=== PATIENT | male | born 1955 | race Caucasian/White ===

== ENCOUNTER 2017-07-24 08:24 | Day surgery (SDC) | payer MEDICARE, BC ==
[2017-07-22 15:36] LABS: CLARITY,URINE CLEAR (Clear); COLOR,URINE YELLOW (Yellow); GLUCOSE, URINE NEGATIVE (Neg); KETONES,URINE NEGATIVE (Neg); LEUKOCYTE ESTERASE ,URINE NEGATIVE (Neg); NITRITES, URINE NEGATIVE (Neg); OCCULT BLOOD,URINE NEGATIVE (Neg); PH,URINE 5.5 (4.8-8.0); PROTEIN,URINE NEGATIVE (Neg); UROBILINOGEN,URINE 0.2 E.U/dL (0.2-1.0)
[2017-07-22 15:41] LABS: BASOPHILS % (AUTO) 0.7 % (0-1); EOSINOPHILS # (AUTO) 0.4 X10'3 (0-0.9); EOSINOPHILS % (AUTO) 6.2 % (0-6); LYMPHOCYTES # (AUTO) 1.7 X10'3 (1.1-4.8); LYMPHOCYTES % (AUTO) 30.1 % (21-51); MEAN CORPUSCULAR HEMOGLOBIN 34.7 PG (27.0-31.0); MEAN CORPUSCULAR HGB CONC 34.3 % (33.0-36.5); MEAN CORPUSCULAR VOLUME 101.1 FL (78-98); MONOCYTES # (AUTO) 0.7 X10'3 (0-0.9); MONOCYTES % (AUTO) 12.1 % (2-12); NEUTROPHILS # (AUTO) 2.9 X10'3 (1.8-7.7); NEUTROPHILS % (AUTO) 50.9 % (42-75); PRE OP HEMATOCRIT 36.5 % (42.0-52.0); PRE OP HEMOGLOBIN 12.5 g/dL (14.0-17.9); PRE OP PLATELET COUNT 315 X10'3 (140-440); RED BLOOD COUNT 3.61 X10'6 (4.70-6.10); RED CELL DISTRIBUTION WIDTH 14.9 % (11.5-14.5)
[2017-07-22 15:41] LABS: UA COLLECTION TYPE CLN CATCH MIDSTREAM
[2017-07-22 15:45] LABS: ALBUMIN 3.4 G/DL (3.4-5.0); ALBUMIN/GLOBULIN RATIO 0.9 (1.1-1.5); ALKALINE PHOSPHATASE 75 IU/L (46-116); BLOOD UREA NITROGEN 15 MG/DL (7-18); BUN/CREATININE RATIO 14.9 (5.4-32.0); CALCIUM 8.8 MG/DL (8.5-10.1); CHLORIDE 103 MMOL/L (99-107); CREATININE 1.01 MG/DL (0.60-1.10); PRE OP ALT 21 U/L (30-65); PRE OP ANION GAP 6 (8-16); PRE OP AST 20 U/L (10-37); PRE OP BILIRUB, TOTAL 0.4 MG/DL (0.0-1.0); PRE OP GLUCOSE 95 MG/DL (70-104); PRE OP POTASSIUM 4.6 MMOL/L (3.4-5.1); PRE OP SODIUM 139 MMOL/L (135-145); TOTAL PROTEIN 7.2 G/DL (6.4-8.2); eGFR 75 ML/MIN
[2017-07-24] VITALS (11 sets, daily range): BP systolic 115–137; BP diastolic 65–86
[~2017-07-24] VITALS: Ht 182.9 cm; Wt 92.4 kg
[~2017-07-24 08:24] MED LIST: ASPI81TA52 PO; CHOL2000 PO; DULO20CA50 PO; FOLI1TAB16 PO; LEVO150T PO; METH2.5T PO; MULT-1179 PO; PANT-47 PO; TEST5GEL2 TOP; ceFOXitin 2 GM ADDvantage bag 100 ML IV ONE; famotidine 20mg tablet PO ONE; ringers solution, lacted 1,000 ML IV SCH
[2017-07-24] MEDS ORDERED: MIDAZolam 5mg/ml 2ml vial IV PRN (10:50)
[2017-07-24] MEDS ORDERED: ROPIVAcaine 0.5% (5mg/ml) 30ml vial ONE (11:28)
[2017-07-24] MEDS ORDERED: ringers solution, lacted 1,000 ML IV SCH (12:06)
[2017-07-24] MEDS ORDERED: fentaNYL/PF 50MCG/1 ML 2ML syringe IV PRN (12:10)
[2017-07-24] MEDS ORDERED: hydrALAZINE 20mg/ml inj. IV PRN (12:10)
[2017-07-24] MEDS ORDERED: labetalol 20mg/4ml (5mg/ml) syringe IV PRN (12:10)
[2017-07-24] MEDS ORDERED: morphine 4 MG/ML inj SYRINge IV PRN ×2 (12:10)
[2017-07-24] MEDS ORDERED: ondansetron/PF 4mg/2ml inj IV PRN (12:10)
[2017-07-24] MEDS ORDERED: ceFAZolin 1000mg inj ONE (12:13)
[2017-07-24] MEDS ORDERED: sevoflurane 250ml liquid IH ONE (13:10)
[2017-07-24] MEDS ORDERED: rocuronium 10mg/ml inj IV ONE (13:19)
[2017-07-24] MEDS ORDERED: glycopyrrolate 0.2mg/ml inj ONE (13:19)
[2017-07-24] MEDS ORDERED: neostigmine methylsulfate 1 MG/ML 10ml vial ONE (13:19)
[2017-07-24] MEDS ORDERED: LIDOcaine 2% (20mg/ml) 5ml vial ONE (13:19)
[2017-07-24] MEDS ORDERED: propofol inj 20 ML IV ONE (13:19)
[2017-07-24] MEDS ORDERED: morphine 10mg/ml inj. ONE ×2 (13:21)
[2017-07-24] MEDS ORDERED: midazolam 2 mg/2 ml injection ONE ×2 (13:25)
[2017-07-24] MEDS: fentaNYL/PF 50MCG/1 ML 2ML syringe IV PRN ×2 (15:47→15:56)
== END 2017-07-24 16:30 | disposition home or self-care (01) ==
LOC: PAS 08:24
PROVIDERS: ATTEND Surgery
DX: K80.10 Calculus of gallbladder with chronic cholecystitis without obstruction (principal); E03.9 Hypothyroidism, unspecified; K21.9 Gastro-esophageal reflux disease without esophagitis; G89.29 Other chronic pain; I10 Essential (primary) hypertension; J44.9 Chronic obstructive pulmonary disease, unspecified; G47.33 Obstructive sleep apnea (adult) (pediatric); Z96.698 Presence of other orthopedic joint implants; Z94.7 Corneal transplant status; Z79.891 Long term (current) use of opiate analgesic; Z79.82 Long term (current) use of aspirin; Z87.891 Personal history of nicotine dependence; Z72.89 Other problems related to lifestyle; Z98.890 Other specified postprocedural states; Z79.899 Other long term (current) drug therapy
CPT/HCPCS: 36415; 47562; 80053; 81003; 85025; 93005; J0690; J0694; J2001; J2250; J2270; J2704; J2710; J2795; J3010; J3490; J7120; 88304; A7000

== ENCOUNTER 2017-07-29 13:59 | Observation (INO) | payer MEDICARE, BC ==
[~2017-07-29] VITALS: Ht 185.4 cm; Wt 92.3 kg
[~2017-07-29 13:59] MED LIST changes: -ceFOXitin 2 GM ADDvantage bag 100 ML IV ONE; -famotidine 20mg tablet PO ONE; -ringers solution, lacted 1,000 ML IV SCH
[2017-07-29 14:47] LABS: BASOPHILS % (AUTO) 0.6 % (0-1); EOSINOPHILS # (AUTO) 0.9 X10'3 (0-0.9); EOSINOPHILS % (AUTO) 12.2 % (0-6); HEMATOCRIT 37.6 % (42.0-52.0); HEMOGLOBIN 13.1 g/dl (14.0-17.9); LYMPHOCYTES # (AUTO) 1.7 X10'3 (1.1-4.8); LYMPHOCYTES % (AUTO) 23.1 % (21-51); MEAN CORPUSCULAR HEMOGLOBIN 34.5 PG (27.0-31.0); MEAN CORPUSCULAR HGB CONC 34.8 % (33.0-36.5); MEAN PLATELET VOLUME 7.7 FL (7.4-10.4); MONOCYTES # (AUTO) 0.8 X10'3 (0-0.9); MONOCYTES % (AUTO) 10.7 % (2-12); NEUTROPHILS # (AUTO) 3.9 X10'3 (1.8-7.7); NEUTROPHILS % (AUTO) 53.4 % (42-75); PLATELET COUNT 318 X10'3 (140-440); RED CELL DISTRIBUTION WIDTH 13.7 % (11.5-14.5); WHITE BLOOD COUNT 7.3 X10'3 (4.5-11.0)
[2017-07-29 14:57] LABS: PARTIAL THROMBOPLASTIN TIME 29 SECONDS (22-32); PROTHROMBIN TIME 10.2 SECONDS (9.0-12.0)
[2017-07-29 15:09] LABS: ALANINE AMINOTRANSFERASE 78 U/L (12-78); ALBUMIN 3.3 G/DL (3.4-5.0); ALBUMIN/GLOBULIN RATIO 0.8 (1.1-1.5); ALKALINE PHOSPHATASE 200 IU/L (46-116); ANION GAP 10 (8-16); ASPARTATE AMINO TRANSFERASE 59 U/L (10-37); BILIRUBIN,TOTAL 0.6 MG/DL (0.1-1.0); BLOOD UREA NITROGEN 13 MG/DL (7-18); BUN/CREATININE RATIO 15.3 (5.4-32.0); CALCIUM 9.4 MG/DL (8.5-10.1); CHLORIDE 100 MMOL/L (99-107); CREATININE 0.85 MG/DL (0.60-1.10); GLUCOSE 96 MG/DL (70-104); POTASSIUM 3.4 MMOL/L (3.5-5.1); SODIUM 136 MMOL/L (135-145); TOTAL CARBON DIOXIDE 25.9 MMOL/L (24-32); TOTAL PROTEIN 7.6 G/DL (6.4-8.2); eGFR > 90 ML/MIN
[2017-07-29] MEDS ORDERED: ondansetron/PF 4mg/2ml inj IV ONE (15:35)
[2017-07-29] MEDS ORDERED: normal saline 1000ML IV soln IV ONE (15:35)
[2017-07-29] MEDS: morphine 4 MG/ML inj SYRINge IV PRN ×4 (15:55→21:03)
[2017-07-29] MEDS ORDERED: CefTRIAXone 2gm/D5W 50ml 50 ML IV ONE (16:10)
[2017-07-29 16:21] LABS: CLARITY,URINE SLIGHTLY CLOUDY (Clear); COLOR,URINE YELLOW (Yellow); GLUCOSE, URINE NEGATIVE (Neg); KETONES,URINE 15 mg/dl (Neg); LEUKOCYTE ESTERASE ,URINE NEGATIVE (Neg); NITRITES, URINE NEGATIVE (Neg); OCCULT BLOOD,URINE NEGATIVE (Neg); PH,URINE 7.5 (4.8-8.0); PROTEIN,URINE NEGATIVE (Neg)
[2017-07-29 16:23] LABS: UA COLLECTION TYPE CLN CATCH MIDSTREAM
[2017-07-29 16:37] LABS: BACTERIA,URINE NONE SEEN /HPF (Neg); RBC,URINE 0-2 /HPF (0-2); SQUAMOUS EPITHELIAL CELL,UR FEW /LPF (FEW); WBC,URINE 0-4 /HPF (0-4)
[2017-07-29] MEDS ORDERED: potassium Cl 40MEQ/NS 500ml 500 ML IV PRN ×2 (17:35)
[2017-07-29] MEDS ORDERED: ondansetron/PF 4mg/2ml inj IV PRN (17:35)
[2017-07-29] MEDS ORDERED: magnesium Cl slow-release 64mg tablet PO PRN (17:35)
[2017-07-29] MEDS ORDERED: mag hydrox/Alum hydrox/simeth 30ml oral suspension PO PRN (17:35)
[2017-07-29] MEDS ORDERED: magnesium/D5W IVPB 50 ML IV PRN (17:35)
[2017-07-29] MEDS ORDERED: potassium Cl 20 mEq SR tablet PO PRN ×2 (17:35)
[2017-07-29] MEDS ORDERED: magnesium 4gm in 100ml NS 100 ML IV PRN (17:35)
[2017-07-29] MEDS ORDERED: HYDROcodone/acetaminophen 10/325mg tab PO PRN (17:35)
[2017-07-29] MEDS ORDERED: HYDROcodone/acetaminophen 5mg/325mg tablet PO PRN (17:35)
[2017-07-29] MEDS ORDERED: acetaminophen 325mg tablet PO PRN ×2 (17:35)
[2017-07-29] MEDS ORDERED: metoclopramide 5 mg/ml inj IV PRN (17:35)
[2017-07-29] MEDS ORDERED: magnesium hydroxide 30ml (MOM) UD suspension PO PRN (17:35)
[2017-07-29] MEDS ORDERED: HYDR-3972 PO (17:49)
[2017-07-29] MEDS ORDERED: METH2.5T PO (17:49)
[2017-07-29] MEDS: normal saline 1000ml 1,000 ML IV SCH (18:51)
[2017-07-29] MEDS: piperacillin/tazo 3.375gm/50ml 50 ML IV SCH ×2 (19:27→23:39)
[2017-07-29] MEDS ORDERED: temazepam 15mg capsule PO PRN (21:00)
[2017-07-29] MEDS: diatr meglu/diatrizoate 30ml oral sol.-(3 dose) bottle PO SCH (21:03)
[2017-07-29 22:56] VITALS: BP 153/81
[2017-07-30] VITALS: BP 109/65
[2017-07-30] MEDS: normal saline 1000ml 1,000 ML IV SCH ×3 (03:28→19:05)
[2017-07-30 04:58] LABS: BASOPHILS # (AUTO) 0.1 X10'3 (0-0.2); EOSINOPHILS # (AUTO) 0.7 X10'3 (0-0.9); EOSINOPHILS % (AUTO) 12.8 % (0-6); HEMATOCRIT 32.8 % (42.0-52.0); HEMOGLOBIN 11.2 g/dl (14.0-17.9); LYMPHOCYTES # (AUTO) 1.3 X10'3 (1.1-4.8); LYMPHOCYTES % (AUTO) 23.7 % (21-51); MEAN CORPUSCULAR HEMOGLOBIN 34.2 PG (27.0-31.0); MEAN CORPUSCULAR HGB CONC 34.1 % (33.0-36.5); MEAN CORPUSCULAR VOLUME 100.2 FL (78-98); MEAN PLATELET VOLUME 7.9 FL (7.4-10.4); MONOCYTES # (AUTO) 0.7 X10'3 (0-0.9); MONOCYTES % (AUTO) 12.5 % (2-12); NEUTROPHILS # (AUTO) 2.7 X10'3 (1.8-7.7); PLATELET COUNT 268 X10'3 (140-440); RED BLOOD COUNT 3.27 X10'6 (4.70-6.10); RED CELL DISTRIBUTION WIDTH 13.5 % (11.5-14.5); WHITE BLOOD COUNT 5.4 X10'3 (4.5-11.0)
[2017-07-30 05:16] LABS: ALANINE AMINOTRANSFERASE 115 U/L (12-78); ALBUMIN 2.6 G/DL (3.4-5.0); ALBUMIN/GLOBULIN RATIO 0.7 (1.1-1.5); ALKALINE PHOSPHATASE 237 IU/L (46-116); ANION GAP 7 (8-16); ASPARTATE AMINO TRANSFERASE 138 U/L (10-37); BILIRUBIN,TOTAL 0.5 MG/DL (0.1-1.0); BLOOD UREA NITROGEN 10 MG/DL (7-18); BUN/CREATININE RATIO 11.1 (5.4-32.0); CALCIUM 8.4 MG/DL (8.5-10.1); CHLORIDE 105 MMOL/L (99-107); GLUCOSE 96 MG/DL (70-104); MAGNESIUM 1.8 MG/DL (1.5-2.4); POTASSIUM 3.8 MMOL/L (3.5-5.1); SODIUM 137 MMOL/L (135-145); TOTAL CARBON DIOXIDE 25.1 MMOL/L (24-32); TOTAL PROTEIN 6.1 G/DL (6.4-8.2); eGFR 85 ML/MIN
[2017-07-30] MEDS: K and/or MAG REPLACEMENT MC SCH (08:00)
[2017-07-30] MEDS: diatr meglu/diatrizoate 30ml oral sol.-(3 dose) bottle PO SCH ×2 (08:38→10:42)
[2017-07-30] MEDS: piperacillin/tazo 3.375gm/50ml 50 ML IV SCH ×2 (08:53→19:05)
[2017-07-30] MEDS: morphine 4 MG/ML inj SYRINge IV PRN (09:09)
[2017-07-30] MEDS ORDERED: DULO30CA51 PO (09:24)
[2017-07-30] MEDS ORDERED: iohexol 350MG/ML 100ml bottle IV ONE (10:51)
[2017-07-30 17:31] LABS: CHOL/HDL RATIO 5.2 (0.00-4.99); CHOLESTEROL 146 MG/DL (0-200); HDL CHOLESTEROL 28 MG/DL (35-60); LDL CHOLESTEROL 99 MG/DL (50-100); TRIGLYCERIDES 98 MG/DL (20-135)
[2017-07-30 19:30] VITALS: BP 96/56
[2017-07-31 00:03] VITALS: BP 113/64
[2017-07-31] MEDS: piperacillin/tazo 3.375gm/50ml 50 ML IV SCH ×2 (01:18→08:07)
[2017-07-31 04:11] LABS: BASOPHILS # (AUTO) 0.1 X10'3 (0-0.2); BASOPHILS % (AUTO) 1.1 % (0-1); EOSINOPHILS # (AUTO) 0.7 X10'3 (0-0.9); EOSINOPHILS % (AUTO) 12.7 % (0-6); HEMATOCRIT 33.1 % (42.0-52.0); HEMOGLOBIN 11.1 g/dl (14.0-17.9); LYMPHOCYTES # (AUTO) 1.3 X10'3 (1.1-4.8); LYMPHOCYTES % (AUTO) 22.5 % (21-51); MEAN CORPUSCULAR HGB CONC 33.6 % (33.0-36.5); MEAN CORPUSCULAR VOLUME 101.1 FL (78-98); MEAN PLATELET VOLUME 7.9 FL (7.4-10.4); MONOCYTES # (AUTO) 0.7 X10'3 (0-0.9); MONOCYTES % (AUTO) 11.5 % (2-12); NEUTROPHILS % (AUTO) 52.2 % (42-75); PLATELET COUNT 293 X10'3 (140-440); RED BLOOD COUNT 3.27 X10'6 (4.70-6.10); RED CELL DISTRIBUTION WIDTH 13.6 % (11.5-14.5); WHITE BLOOD COUNT 5.8 X10'3 (4.5-11.0)
[2017-07-31 04:28] LABS: ALANINE AMINOTRANSFERASE 83 U/L (12-78); ALBUMIN 2.8 G/DL (3.4-5.0); ALBUMIN/GLOBULIN RATIO 0.8 (1.1-1.5); ALKALINE PHOSPHATASE 216 IU/L (46-116); ANION GAP 9 (8-16); ASPARTATE AMINO TRANSFERASE 45 U/L (10-37); BILIRUBIN,TOTAL 0.3 MG/DL (0.1-1.0); BLOOD UREA NITROGEN 6 MG/DL (7-18); BUN/CREATININE RATIO 6.4 (5.4-32.0); CALCIUM 8.5 MG/DL (8.5-10.1); CHLORIDE 107 MMOL/L (99-107); CREATININE 0.94 MG/DL (0.60-1.10); GLUCOSE 105 MG/DL (70-104); MAGNESIUM 1.9 MG/DL (1.5-2.4); POTASSIUM 3.8 MMOL/L (3.5-5.1); SODIUM 144 MMOL/L (135-145); TOTAL CARBON DIOXIDE 27.8 MMOL/L (24-32); TOTAL PROTEIN 6.5 G/DL (6.4-8.2); eGFR 81 ML/MIN
[2017-07-31] MEDS: normal saline 1000ml 1,000 ML IV SCH (05:01)
[2017-07-31] MEDS: K and/or MAG REPLACEMENT MC SCH (08:00)
== END 2017-07-31 15:20 | disposition home or self-care (01) ==
LOC: ER 14:00 → ED HOLD 17:31 → SUR 3N 18:50
PROVIDERS: ADMIT Family Medicine; ATTEND Family Medicine
DX: R10.10 Upper abdominal pain, unspecified (principal); G89.18 Other acute postprocedural pain; E03.9 Hypothyroidism, unspecified; M54.5 Low back pain; G89.29 Other chronic pain; M19.90 Unspecified osteoarthritis, unspecified site; E11.9 Type 2 diabetes mellitus without complications; K21.9 Gastro-esophageal reflux disease without esophagitis; H54.62 Unqualified visual loss, left eye, normal vision right eye; J44.9 Chronic obstructive pulmonary disease, unspecified; A41.9 Sepsis, unspecified organism; Z87.891 Personal history of nicotine dependence; Z90.49 Acquired absence of other specified parts of digestive tract
CPT/HCPCS: 36415; 71045; 74174; 74176; 80053; 80061; 81001; 83605; 83735; 84145; 84484; 85025; 85610; 85730; 87040; 87070; 93005; 96361; 96365; 96366; 96367; 96375; 96376; 99285; G0378; J0696; J2270; J2405; J2543; J7030; Q9963; Q9967

== ENCOUNTER 2017-08-19 09:51 | Outpatient (CLI) | payer MEDICARE, BC ==
[~2017-08-19 09:51] MED LIST changes: -DULO20CA50 PO; +DULO30CA51 PO; +HYDR-3972 PO
== END 2017-08-19 23:59 | disposition home or self-care (01) ==
LOC: RAD 09:51
PROVIDERS: ATTEND Surgery
DX: Z00.00 Encounter for general adult medical examination without abnormal findings (principal); Z53.21 Procedure and treatment not carried out due to patient leaving prior to being seen by health care provider

== ENCOUNTER 2017-08-20 09:22 | Outpatient (CLI) | payer MEDICARE, BC ==
[2017-08-20] MEDS ORDERED: diatrozoate meglu/diatrozoate sod (37% iodine) 120ML oral solution ONE (10:08)
[2017-08-20] MEDS ORDERED: BARIUM SULFATE/METHYLCELLULOSE 600 ML SUSPENSION BOTTLE**DONT ENTER PO ONE (10:26)
[2017-08-20] MEDS ORDERED: BARIUM SULFATE 340 ML SUSP.RECON***PROCEDURE AREA ONLY**DONT ENTER PO ONE (10:26)
== END 2017-08-20 23:59 | disposition home or self-care (01) ==
LOC: RAD 09:22
PROVIDERS: ATTEND Surgery
DX: R10.13 Epigastric pain (principal)
CPT/HCPCS: 74241; Q9963

== ENCOUNTER 2017-12-25 09:20 | Inpatient (IN) | payer MEDICARE, BC ==
[2017-12-19 16:17] LABS: BASOPHILS % (AUTO) 0.7 % (0-1); EOSINOPHILS # (AUTO) 0.4 X10'3 (0-0.9); EOSINOPHILS % (AUTO) 6.4 % (0-6); LYMPHOCYTES # (AUTO) 1.7 X10'3 (1.1-4.8); LYMPHOCYTES % (AUTO) 26.6 % (21-51); MEAN CORPUSCULAR HEMOGLOBIN 32.4 PG (27.0-31.0); MEAN CORPUSCULAR HGB CONC 33.4 % (33.0-36.5); MEAN PLATELET VOLUME 7.5 FL (7.4-10.4); MONOCYTES # (AUTO) 0.7 X10'3 (0-0.9); MONOCYTES % (AUTO) 10.3 % (2-12); NEUTROPHILS # (AUTO) 3.6 X10'3 (1.8-7.7); PRE OP HEMATOCRIT 36.4 % (42.0-52.0); PRE OP HEMOGLOBIN 12.2 g/dL (14.0-17.9); PRE OP PLATELET COUNT 366 X10'3 (140-440); RED BLOOD COUNT 3.76 X10'6 (4.70-6.10); RED CELL DISTRIBUTION WIDTH 14.1 % (11.5-14.5)
[2017-12-19 16:45] LABS: ALBUMIN 3.3 G/DL (3.4-5.0); ALBUMIN/GLOBULIN RATIO 0.9 (1.1-1.5); ALKALINE PHOSPHATASE 65 IU/L (46-116); BLOOD UREA NITROGEN 15 MG/DL (7-18); BUN/CREATININE RATIO 17.6 (5.4-32.0); CALCIUM 8.9 MG/DL (8.5-10.1); CHLORIDE 105 MMOL/L (99-107); CREATININE 0.85 MG/DL (0.60-1.10); PRE OP ALT 26 U/L (30-65); PRE OP ANION GAP 8 (8-16); PRE OP AST 21 U/L (10-37); PRE OP BILIRUB, TOTAL 0.4 MG/DL (0.0-1.0); PRE OP GLUCOSE 91 MG/DL (70-104); PRE OP POTASSIUM 3.6 MMOL/L (3.4-5.1); PRE OP SODIUM 142 MMOL/L (135-145); TOTAL CARBON DIOXIDE 29.1 MMOL/L (24-32); TOTAL PROTEIN 6.8 G/DL (6.4-8.2); eGFR > 90 ML/MIN
[2017-12-25] VITALS (21 sets, daily range): BP systolic 85–119; BP diastolic 42–76
[~2017-12-25] VITALS: Ht 182.9 cm; Wt 90.7 kg
[~2017-12-25 09:20] MED LIST changes: -ASPI81TA52 PO; -CHOL2000 PO; -DULO30CA51 PO; -HYDR-3972 PO; -MULT-1179 PO; +acetaminophen 325mg tablet PO ONE; +cefazolin/dext.iso 2gm/100 ML IV ONE; +famotidine 20mg tablet PO ONE; +gabapentin 300mg capsule PO ONE; +metoclopramide 5 mg/ml inj IV ONE; +oxyCODONE SR 10mg (sust. release) tab -2 tabs (20mg) PO ONE; +ringers solution, lacted 1,000 ML IV SCH; +tranexamic acid inj. 1,000 MG in normal saline 100ml IV soln 90 ML IV ONE; +vancomycin inj 1,500 MG in normal saline 300ml IV soln IV ONE
[2017-12-25] MEDS ORDERED: Thrombin (Bovine) 5,000 unit vial TP ONE (09:56)
[2017-12-25] MEDS ORDERED: vancomycin 1,000mg inj ONE ×2 (09:56→10:08)
[2017-12-25] MEDS ORDERED: ROPIVAcaine inj 200 MG, ketorolac trometh inj. 30 MG, epiNEPHrine inj 0.6 MG, morphine ... IU ONE ×5 (10:05)
[2017-12-25] MEDS ORDERED: ceFAZolin 1000mg inj ONE (10:08)
[2017-12-25] MEDS ORDERED: [UNRECOGNIZED DRUG - OTHER] SQ ONE (10:20)
[2017-12-25] MEDS ORDERED: ROPIVACAINE SQ ONE (10:20)
[2017-12-25] MEDS ORDERED: EPINEPHRINE SQ ONE (10:20)
[2017-12-25] MEDS ORDERED: MORPHINE SQ ONE (10:20)
[2017-12-25] MEDS ORDERED: ketorolac trometh. 30mg/ml inj. ONE (10:22)
[2017-12-25] MEDS ORDERED: ROPIVAcaine inj 200 MG, epiNEPHrine inj 0.6 MG, morphine 10mg/ml inj. 5 MG in normal sa... SQ ONE (10:35)
[2017-12-25] MEDS ORDERED: tetracaine 1% (10mg/ml) pres. free inj. ONE (10:58)
[2017-12-25] MEDS ORDERED: ROPIVAcaine 0.5% (5mg/ml) 30ml vial ONE (10:58)
[2017-12-25] MEDS ORDERED: fentaNYL/PF 50MCG/1 ML 2ML syringe ONE ×2 (10:59→13:31)
[2017-12-25] MEDS ORDERED: MIDAZolam 1mg/ml 10ml vial ONE (10:59)
[2017-12-25] MEDS ORDERED: BUPIVAcaine/dex-water/PF 7.5 mg/ml 2ml ampul ONE (11:01)
[2017-12-25] MEDS ORDERED: propofol inj 20 ML IV ONE ×2 (11:15)
[2017-12-25] MEDS ORDERED: phenylephrine 10mg/ml inj. ONE (11:18)
[2017-12-25] MEDS ORDERED: ringers solution, lacted 1,000 ML IV SCH (12:31)
[2017-12-25] MEDS ORDERED: proCHLORperazine 10 MG/2 ml inj IV PRN (12:35)
[2017-12-25] MEDS ORDERED: meperidine/PF 25mg/ml syringe IV PRN ×3 (12:35)
[2017-12-25] MEDS ORDERED: morphine 4 MG/ML inj SYRINge IV PRN ×2 (12:35)
[2017-12-25] MEDS ORDERED: ondansetron/PF 4mg/2ml inj IV PRN ×2 (12:35→13:35)
[2017-12-25] MEDS ORDERED: calcium chloride 100 MG/1 ML inj IV ONE (12:47)
[2017-12-25] MEDS ORDERED: bisacodyl 10mg suppository rectal RC PRN (13:35)
[2017-12-25] MEDS ORDERED: diphenhydrAMINE 25mg capsule PO PRN ×2 (13:35)
[2017-12-25] MEDS ORDERED: magnesium hydroxide 30ml (MOM) UD suspension PO PRN (13:35)
[2017-12-25] MEDS ORDERED: acetaminophen 325mg tablet PO PRN (13:35)
[2017-12-25] MEDS ORDERED: HYDROmorphone 1 mg/ml syringe IV PRN (13:35)
[2017-12-25] MEDS ORDERED: tranexamic acid inj. 1,000 MG in normal saline 100ml IV soln 100 ML IV ONE (16:35)
[2017-12-25] MEDS: oxyCODONE IR 5mg (immed. release) tablet PO PRN ×3 (16:56→23:34)
[2017-12-25] MEDS: potassium cl 20mEq in 1/2 NS 1,000 ML IV SCH (17:38)
[2017-12-25] MEDS: ceFAZolin 1GM/D5W- ADD-VANTAGE 50 ML IV SCH (18:40)
[2017-12-25] MEDS ORDERED: vancomycin/NS 1 GM ADD-VANTAGE 250 ML IV SCH (20:00)
[2017-12-25] MEDS ORDERED: folic acid 1mg tablet PO ONE ×2 (20:55→21:50)
[2017-12-25] MEDS: sennosides 8.6mg tablet PO SCH (21:31)
[2017-12-25] MEDS: acetaminophen 325mg tablet PO SCH (21:31)
[2017-12-25] MEDS: gabapentin 300mg capsule PO SCH (21:31)
[2017-12-25] MEDS: HYDROmorphone 1 mg/ml syringe IV PRN (21:43)
[2017-12-26] MEDS: ceFAZolin 1GM/D5W- ADD-VANTAGE 50 ML IV SCH (01:53)
[2017-12-26] MEDS: acetaminophen 325mg tablet PO SCH ×4 (01:58→20:20)
[2017-12-26 02:00] VITALS: BP 106/58
[2017-12-26] MEDS: potassium cl 20mEq in 1/2 NS 1,000 ML IV SCH ×4 (03:53→21:32)
[2017-12-26 05:00] VITALS: BP 106/54
[2017-12-26 05:01] LABS: BASOPHILS # (AUTO) 0.1 X10'3 (0-0.2); BASOPHILS % (AUTO) 1.4 % (0-1); EOSINOPHILS % (AUTO) 0 % (0-6); HEMATOCRIT 31.1 % (42.0-52.0); HEMOGLOBIN 10.4 g/dl (14.0-17.9); LYMPHOCYTES # (AUTO) 0.5 X10'3 (1.1-4.8); LYMPHOCYTES % (AUTO) 6.3 % (21-51); MEAN CORPUSCULAR HEMOGLOBIN 32.2 PG (27.0-31.0); MEAN CORPUSCULAR HGB CONC 33.5 % (33.0-36.5); MEAN CORPUSCULAR VOLUME 95.9 FL (78-98); MEAN PLATELET VOLUME 8.3 FL (7.4-10.4); MONOCYTES # (AUTO) 0.3 X10'3 (0-0.9); MONOCYTES % (AUTO) 3.6 % (2-12); NEUTROPHILS # (AUTO) 6.8 X10'3 (1.8-7.7); NEUTROPHILS % (AUTO) 88.7 % (42-75); PLATELET COUNT 305 X10'3 (140-440); RED BLOOD COUNT 3.24 X10'6 (4.70-6.10); RED CELL DISTRIBUTION WIDTH 13.2 % (11.5-14.5); WHITE BLOOD COUNT 7.6 X10'3 (4.5-11.0)
[2017-12-26 05:24] LABS: ANION GAP 10 (8-16); CHLORIDE 105 MMOL/L (99-107); POTASSIUM 4.5 MMOL/L (3.5-5.1); SODIUM 137 MMOL/L (135-145); TOTAL CARBON DIOXIDE 22.5 MMOL/L (24-32)
[2017-12-26] MEDS: HYDROmorphone 1 mg/ml syringe IV PRN ×3 (05:47→20:29)
[2017-12-26] MEDS: levoTHYROXINE 75mcg tablet PO SCH (07:52)
[2017-12-26] MEDS: gabapentin 300mg capsule PO SCH ×3 (08:00→20:20)
[2017-12-26] MEDS ORDERED: folic acid 1mg tablet PO ONE ×2 (08:00→20:00)
[2017-12-26] MEDS ORDERED: folic acid 1mg tablet PO SCH (08:00)
[2017-12-26] MEDS: aspirin 325mg tablet PO SCH (08:26)
[2017-12-26] MEDS: oxyCODONE IR 5mg (immed. release) tablet PO PRN ×5 (08:26→23:04)
[2017-12-26] MEDS: pantoprazole 40mg Tablet.DR PO SCH (08:26)
[2017-12-26] MEDS: testosterone 5gm gel packet TD SCH (08:28)
[2017-12-26 10:00] VITALS: BP 109/60
[2017-12-26 14:05] VITALS: BP 99/54
[2017-12-26 18:00] VITALS: BP 107/54
[2017-12-26] MEDS: celeCOXIB 100mg capsule PO SCH (20:19)
[2017-12-26] MEDS: sennosides 8.6mg tablet PO SCH (20:20)
[2017-12-26 22:00] VITALS: BP 107/56
[2017-12-27] MEDS: oxyCODONE IR 5mg (immed. release) tablet PO PRN ×4 (02:45→16:25)
[2017-12-27] MEDS: acetaminophen 325mg tablet PO SCH ×2 (02:45→08:02)
[2017-12-27] MEDS: HYDROmorphone 1 mg/ml syringe IV PRN (05:15)
[2017-12-27 05:30] VITALS: BP 122/71
[2017-12-27 07:20] LABS: BASOPHILS % (AUTO) 0.7 % (0-1); EOSINOPHILS # (AUTO) 0.3 X10'3 (0-0.9); EOSINOPHILS % (AUTO) 4.6 % (0-6); HEMATOCRIT 27.8 % (42.0-52.0); HEMOGLOBIN 9.3 g/dl (14.0-17.9); LYMPHOCYTES # (AUTO) 1.4 X10'3 (1.1-4.8); LYMPHOCYTES % (AUTO) 24.7 % (21-51); MEAN CORPUSCULAR HEMOGLOBIN 32.6 PG (27.0-31.0); MEAN CORPUSCULAR HGB CONC 33.4 % (33.0-36.5); MEAN CORPUSCULAR VOLUME 97.6 FL (78-98); MEAN PLATELET VOLUME 7.9 FL (7.4-10.4); MONOCYTES # (AUTO) 0.6 X10'3 (0-0.9); MONOCYTES % (AUTO) 10.2 % (2-12); NEUTROPHILS # (AUTO) 3.4 X10'3 (1.8-7.7); NEUTROPHILS % (AUTO) 59.8 % (42-75); PLATELET COUNT 288 X10'3 (140-440); RED BLOOD COUNT 2.85 X10'6 (4.70-6.10); RED CELL DISTRIBUTION WIDTH 13.6 % (11.5-14.5); WHITE BLOOD COUNT 5.7 X10'3 (4.5-11.0)
[2017-12-27] MEDS: pantoprazole 40mg Tablet.DR PO SCH (08:03)
[2017-12-27] MEDS: gabapentin 300mg capsule PO SCH ×2 (08:03→13:00)
[2017-12-27] MEDS: aspirin 325mg tablet PO SCH (08:03)
[2017-12-27] MEDS: levoTHYROXINE 75mcg tablet PO SCH (08:03)
[2017-12-27] MEDS: celeCOXIB 100mg capsule PO SCH (08:04)
[2017-12-27] MEDS: testosterone 5gm gel packet TD SCH (08:04)
[2017-12-27 10:04] VITALS: BP 125/72
[2017-12-27] MEDS ORDERED: acetaminophen 325mg tablet PO PRN (13:35)
[2017-12-27] MEDS ORDERED: HYDR-4353 PO (16:29)
== END 2017-12-27 17:34 | disposition home health service (06) | DRG 470 ==
LOC: PAS IN 09:20 → EDSTATUS 11:30 → ORTHO 4S 15:37
PROVIDERS: ADMIT Orthopaedic Surgery; ATTEND Orthopaedic Surgery
PROC: 8E0YXCZ Robotic Assisted Procedure of Lower Extremity (ICD-10-PCS; 2017-12-25)
PROC: 3E0T3BZ Introduction of Anesthetic Agent into Peripheral Nerves and Plexi, Percutaneous Approach (ICD-10-PCS; 2017-12-25)
PROC: 0SRC069 Replacement of Right Knee Joint with Oxidized Zirconium on Polyethylene Synthetic Substitute, Cemented, Open Approach (ICD-10-PCS; principal; 2017-12-25 10:56)
DX: M17.11 Unilateral primary osteoarthritis, right knee (principal); D62 Acute posthemorrhagic anemia; G47.30 Sleep apnea, unspecified; E03.9 Hypothyroidism, unspecified; I10 Essential (primary) hypertension; K21.9 Gastro-esophageal reflux disease without esophagitis; Z79.899 Other long term (current) drug therapy
CPT/HCPCS: 36415; 80051; 80053; 84443; 85025; 87070; 93005; 97110; 97116; 97161; A6455; A7000; C1713; C1758; C1776; G0378; J0171; J0690; J1170; J1885; J2175; J2250; J2270; J2274; J2370; J2704; J2765; J2795; J3010; J3370; J3490; J7030; J7120; J8610

== ENCOUNTER → 2018-01-01 | Outpatient (CLI) | payer MEDICARE, BC ==
[~2018-01-01] MED LIST changes: +HYDR-4353 PO; -acetaminophen 325mg tablet PO ONE; -cefazolin/dext.iso 2gm/100 ML IV ONE; -famotidine 20mg tablet PO ONE; -gabapentin 300mg capsule PO ONE; -metoclopramide 5 mg/ml inj IV ONE; -oxyCODONE SR 10mg (sust. release) tab -2 tabs (20mg) PO ONE; -ringers solution, lacted 1,000 ML IV SCH; -tranexamic acid inj. 1,000 MG in normal saline 100ml IV soln 90 ML IV ONE; -vancomycin inj 1,500 MG in normal saline 300ml IV soln IV ONE
== END | disposition home or self-care (01) ==
LOC: VAS 10:55
PROVIDERS: ATTEND Orthopaedic Surgery
DX: R59.0 Localized enlarged lymph nodes (principal); R60.0 Localized edema; M79.604 Pain in right leg; I10 Essential (primary) hypertension; J44.9 Chronic obstructive pulmonary disease, unspecified; E11.9 Type 2 diabetes mellitus without complications; Z87.891 Personal history of nicotine dependence; Z79.82 Long term (current) use of aspirin
CPT/HCPCS: 93971

== ENCOUNTER 2018-01-05 10:35 | Inpatient (IN) | payer MEDICARE, BC ==
[~2018-01-05] VITALS: Ht 182.9 cm; Wt 89.5 kg
[2018-01-05] MEDS ORDERED: methylPREDNISolone sod succ 125mg/2ml vial IV ONE (11:05)
[2018-01-05] MEDS ORDERED: diphenhydrAMINE 50 mg/ml inj IV ONE (11:05)
[2018-01-05 11:23] LABS: BASOPHILS # (AUTO) 0.1 X10'3 (0-0.2); BASOPHILS % (AUTO) 0.6 % (0-1); EOSINOPHILS # (AUTO) 0.7 X10'3 (0-0.9); EOSINOPHILS % (AUTO) 5.7 % (0-6); HEMATOCRIT 39.9 % (42.0-52.0); HEMOGLOBIN 13.4 g/dl (14.0-17.9); LYMPHOCYTES # (AUTO) 1.8 X10'3 (1.1-4.8); LYMPHOCYTES % (AUTO) 15.4 % (21-51); MEAN CORPUSCULAR HEMOGLOBIN 31.9 PG (27.0-31.0); MEAN CORPUSCULAR HGB CONC 33.7 % (33.0-36.5); MEAN CORPUSCULAR VOLUME 94.5 FL (78-98); MEAN PLATELET VOLUME 8.2 FL (7.4-10.4); MONOCYTES # (AUTO) 0.3 X10'3 (0-0.9); MONOCYTES % (AUTO) 2.4 % (2-12); NEUTROPHILS % (AUTO) 75.9 % (42-75); PLATELET COUNT 452 X10'3 (140-440); RED BLOOD COUNT 4.22 X10'6 (4.70-6.10); RED CELL DISTRIBUTION WIDTH 13.2 % (11.5-14.5); WHITE BLOOD COUNT 11.8 X10'3 (4.5-11.0)
[2018-01-05] MEDS ORDERED: epiNEPHrine 1 mg/ml inj IM STA (11:39)
[2018-01-05 11:40] LABS: ALANINE AMINOTRANSFERASE 30 U/L (12-78); ALBUMIN/GLOBULIN RATIO 0.7 (1.1-1.5); ALKALINE PHOSPHATASE 192 IU/L (46-116); ANION GAP 12 (8-16); ASPARTATE AMINO TRANSFERASE 28 U/L (10-37); BILIRUBIN,TOTAL 1.1 MG/DL (0.1-1.0); BLOOD UREA NITROGEN 19 MG/DL (7-18); BUN/CREATININE RATIO 13.1 (5.4-32.0); CALCIUM 9.4 MG/DL (8.5-10.1); CHLORIDE 96 MMOL/L (99-107); CREATININE 1.45 MG/DL (0.60-1.10); GLUCOSE 94 MG/DL (70-104); POTASSIUM 4.1 MMOL/L (3.5-5.1); SODIUM 130 MMOL/L (135-145); TOTAL PROTEIN 7.4 G/DL (6.4-8.2); eGFR 49 ML/MIN
[2018-01-05 11:44] LABS: INR 1.1 INR; PARTIAL THROMBOPLASTIN TIME 36 SECONDS (22-32); PROTHROMBIN TIME 11.3 SECONDS (9.0-12.0)
[2018-01-05] MEDS ORDERED: normal saline 1000ML IV soln IVB ONE (12:35)
[2018-01-05 13:05] LABS: MAGNESIUM 1.7 MG/DL (1.5-2.4); TROPONIN I < 0.04 NG/ML (0.0-0.05)
[2018-01-05] MEDS ORDERED: acetaminophen 325mg tablet PO ONE (13:50)
[2018-01-05] MEDS ORDERED: acetaminophen 325mg tablet PO PRN (14:10)
[2018-01-05] MEDS ORDERED: HYDROcodone/acetaminophen 5mg/325mg tablet PO PRN (14:10)
[2018-01-05] MEDS ORDERED: morphine 2 MG/ML inj. syringe IV PRN ×2 (14:10)
[2018-01-05] MEDS ORDERED: magnesium hydroxide 30ml (MOM) UD suspension PO PRN (14:10)
[2018-01-05] MEDS ORDERED: ondansetron/PF 4mg/2ml inj IV PRN (14:10)
[2018-01-05] MEDS ORDERED: mag hydrox/Alum hydrox/simeth 30ml oral suspension PO PRN (14:10)
[2018-01-05] MEDS: dexamethasone sod phosphate 10mg/ml inj IV SCH ×2 (14:33→20:37)
[2018-01-05] MEDS: normal saline 1000ml 1,000 ML IV SCH (15:23)
[2018-01-05 16:21] LABS: CLARITY,URINE SLIGHTLY CLOUDY (Clear); COLOR,URINE AMBER (Yellow); GLUCOSE, URINE NEGATIVE (Neg); KETONES,URINE 15 mg/dl (Neg); LEUKOCYTE ESTERASE ,URINE NEGATIVE (Neg); NITRITES, URINE NEGATIVE (Neg); OCCULT BLOOD,URINE NEGATIVE (Neg); PROTEIN,URINE NEGATIVE (Neg); UROBILINOGEN,URINE 0.2 E.U/dL (0.2-1.0)
[2018-01-05 16:24] LABS: UA COLLECTION TYPE VOIDED
[2018-01-05 16:27] LABS: BACTERIA,URINE FEW /HPF (Neg); MUCUS STRANDS MODERATE /LPF (Neg); RBC,URINE 0-2 /HPF (0-2); SQUAMOUS EPITHELIAL CELL,UR FEW /LPF (FEW); WBC,URINE 0-4 /HPF (0-4)
[2018-01-05 20:00] VITALS: BP 102/44
[2018-01-05] MEDS: HYDROcodone/acetaminophen 10/325mg tab PO PRN (20:34)
[2018-01-05] MEDS: famotidine 20mg tablet PO SCH (20:34)
[2018-01-05] MEDS: diphenhydrAMINE 50 mg/ml inj IV PRN (20:42)
[2018-01-05 22:00] VITALS: BP 107/59
[2018-01-06] MEDS: dexamethasone sod phosphate 10mg/ml inj IV SCH ×4 (02:03→19:50)
[2018-01-06] MEDS: normal saline 1000ml 1,000 ML IV SCH ×2 (05:40→10:06)
[2018-01-06 06:00] VITALS: BP 112/56
[2018-01-06 08:00] VITALS: BP_SYST 100; BP_SYST 116; BP_SYST 121; BP_DIAS 59; BP_DIAS 67; BP_DIAS 72
[2018-01-06] MEDS: enoxaparin 40mg/0.4ml syringe SUBCUT SCH (08:00)
[2018-01-06] MEDS: famotidine 20mg tablet PO SCH ×2 (08:20→19:50)
[2018-01-06 09:34] LABS: BASOPHILS % (AUTO) 0 % (0-1); EOSINOPHILS % (AUTO) 0.1 % (0-6); HEMATOCRIT 28.4 % (42.0-52.0); HEMOGLOBIN 9.7 g/dl (14.0-17.9); LYMPHOCYTES # (AUTO) 0.4 X10'3 (1.1-4.8); MEAN CORPUSCULAR HEMOGLOBIN 32.4 PG (27.0-31.0); MEAN CORPUSCULAR HGB CONC 34.2 % (33.0-36.5); MEAN CORPUSCULAR VOLUME 94.7 FL (78-98); MEAN PLATELET VOLUME 7.4 FL (7.4-10.4); MONOCYTES # (AUTO) 0.1 X10'3 (0-0.9); NEUTROPHILS # (AUTO) 10.4 X10'3 (1.8-7.7); NEUTROPHILS % (AUTO) 94.9 % (42-75); PLATELET COUNT 347 X10'3 (140-440); RED CELL DISTRIBUTION WIDTH 12.1 % (11.5-14.5); WHITE BLOOD COUNT 10.9 X10'3 (4.5-11.0)
[2018-01-06 09:44] LABS: ALANINE AMINOTRANSFERASE 24 U/L (12-78); ALBUMIN 2.4 G/DL (3.4-5.0); ALBUMIN/GLOBULIN RATIO 0.6 (1.1-1.5); ALKALINE PHOSPHATASE 163 IU/L (46-116); ANION GAP 12 (8-16); ASPARTATE AMINO TRANSFERASE 14 U/L (10-37); BILIRUBIN,TOTAL 0.3 MG/DL (0.1-1.0); BLOOD UREA NITROGEN 21 MG/DL (7-18); BUN/CREATININE RATIO 17.4 (5.4-32.0); CALCIUM 8.5 MG/DL (8.5-10.1); CHLORIDE 100 MMOL/L (99-107); CREATININE 1.21 MG/DL (0.60-1.10); GLUCOSE 217 MG/DL (70-104); POTASSIUM 3.8 MMOL/L (3.5-5.1); SODIUM 134 MMOL/L (135-145); TOTAL CARBON DIOXIDE 22.2 MMOL/L (24-32); TOTAL PROTEIN 6.4 G/DL (6.4-8.2); eGFR 61 ML/MIN
[2018-01-06 10:00] VITALS: BP 98/53
[2018-01-06] MEDS ORDERED: potassium Cl 20 mEq SR tablet PO PRN ×2 (10:05)
[2018-01-06] MEDS ORDERED: potassium Cl 40MEQ/NS 500ml 500 ML IV PRN ×2 (10:05)
[2018-01-06] MEDS ORDERED: magnesium 4gm in 100ml NS 100 ML IV PRN (10:05)
[2018-01-06] MEDS ORDERED: magnesium Cl slow-release 64mg tablet PO PRN (10:05)
[2018-01-06] MEDS: CefTRIAXone/D5W-Rocephin 1gm 50 ML IV SCH (11:46)
[2018-01-06] MEDS: diphenhydrAMINE 50 mg/ml inj IV PRN ×2 (13:55→19:53)
[2018-01-06 18:00] VITALS: BP 116/59
[2018-01-06 20:00] VITALS: BP_SYST 101; BP_SYST 106; BP_SYST 107; BP_DIAS 49; BP_DIAS 51; BP_DIAS 59
[2018-01-06] MEDS ORDERED: methylPREDNISolone sod succ 125mg/2ml vial IV ONE (20:18)
[2018-01-06 22:00] VITALS: BP 107/49
[2018-01-06] MEDS: HYDROcodone/acetaminophen 10/325mg tab PO PRN (23:37)
[2018-01-07 06:00] VITALS: BP 123/59
[2018-01-07] MEDS: normal saline 1000ml 1,000 ML IV SCH ×3 (06:06→16:06)
[2018-01-07 08:00] VITALS: BP_SYST 116; BP_SYST 117; BP_SYST 130; BP_DIAS 61; BP_DIAS 67; BP_DIAS 76
[2018-01-07] MEDS: enoxaparin 40mg/0.4ml syringe SUBCUT SCH (08:00)
[2018-01-07] MEDS: folic acid 1mg tablet PO SCH (08:05)
[2018-01-07] MEDS: CefTRIAXone/D5W-Rocephin 1gm 50 ML IV SCH (08:05)
[2018-01-07] MEDS: methylPREDNISolone sod succ 125mg/2ml vial IV SCH (08:05)
[2018-01-07] MEDS: pantoprazole 40mg Tablet.DR PO SCH (08:06)
[2018-01-07] MEDS: levoTHYROXINE 75mcg tablet PO SCH (08:06)
[2018-01-07] MEDS: famotidine 20mg tablet PO SCH ×2 (08:06→21:08)
[2018-01-07 08:11] LABS: ALANINE AMINOTRANSFERASE 25 U/L (12-78); ALBUMIN 2.7 G/DL (3.4-5.0); ALBUMIN/GLOBULIN RATIO 0.7 (1.1-1.5); ALKALINE PHOSPHATASE 127 IU/L (46-116); ANION GAP 9 (8-16); ASPARTATE AMINO TRANSFERASE 16 U/L (10-37); BILIRUBIN,TOTAL 0.2 MG/DL (0.1-1.0); BLOOD UREA NITROGEN 19 MG/DL (7-18); BUN/CREATININE RATIO 20.9 (5.4-32.0); CALCIUM 8.6 MG/DL (8.5-10.1); CHLORIDE 106 MMOL/L (99-107); CREATININE 0.91 MG/DL (0.60-1.10); GLUCOSE 183 MG/DL (70-104); MAGNESIUM 2.4 MG/DL (1.5-2.4); PHOSPHORUS 1.7 MG/DL (2.3-4.5); POTASSIUM 3.9 MMOL/L (3.5-5.1); SODIUM 141 MMOL/L (135-145); TOTAL CARBON DIOXIDE 25.6 MMOL/L (24-32); TOTAL PROTEIN 6.6 G/DL (6.4-8.2); eGFR 84 ML/MIN
[2018-01-07] MEDS: diphenhydrAMINE 50 mg/ml inj IV PRN ×2 (08:14→21:10)
[2018-01-07 08:36] LABS: HEMATOCRIT 27.5 % (42.0-52.0); HEMOGLOBIN 9.1 g/dl (14.0-17.9); MEAN CORPUSCULAR HEMOGLOBIN 31.7 PG (27.0-31.0); MEAN CORPUSCULAR HGB CONC 33.1 % (33.0-36.5); MEAN CORPUSCULAR VOLUME 95.8 FL (78-98); MEAN PLATELET VOLUME 9.2 FL (7.4-10.4); PLATELET COUNT 424 X10'3 (140-440); RED BLOOD COUNT 2.87 X10'6 (4.70-6.10); RED CELL DISTRIBUTION WIDTH 13.6 % (11.5-14.5); WHITE BLOOD COUNT 11.8 X10'3 (4.5-11.0)
[2018-01-07 09:16] LABS: PLATELET ESTIMATE INCREASED; TOTAL CELLS COUNTED 100
[2018-01-07 10:00] VITALS: BP 122/53
[2018-01-07] MEDS: triamcinolone acetonide 0.5% cream 15gm TP SCH ×2 (11:00→20:00)
[2018-01-07] MEDS: HYDROcodone/acetaminophen 10/325mg tab PO PRN (14:26)
[2018-01-07 18:00] VITALS: BP 130/61
[2018-01-07] MEDS: lactobacillus rhamnosus 10,000 MMU CELLS/CAPSULE PO SCH (21:08)
[2018-01-07 22:00] VITALS: BP 119/39
[2018-01-08] MEDS: normal saline 1000ml 1,000 ML IV SCH (04:26)
[2018-01-08 06:17] LABS: ALANINE AMINOTRANSFERASE 24 U/L (12-78); ALBUMIN 2.7 G/DL (3.4-5.0); ALBUMIN/GLOBULIN RATIO 0.8 (1.1-1.5); ALKALINE PHOSPHATASE 103 IU/L (46-116); ANION GAP 9 (8-16); ASPARTATE AMINO TRANSFERASE 11 U/L (10-37); BILIRUBIN,TOTAL 0.2 MG/DL (0.1-1.0); BLOOD UREA NITROGEN 19 MG/DL (7-18); BUN/CREATININE RATIO 23.8 (5.4-32.0); CALCIUM 8.8 MG/DL (8.5-10.1); CHLORIDE 106 MMOL/L (99-107); GLUCOSE 132 MG/DL (70-104); MAGNESIUM 2.4 MG/DL (1.5-2.4); PHOSPHORUS 2.4 MG/DL (2.3-4.5); POTASSIUM 4.1 MMOL/L (3.5-5.1); SODIUM 140 MMOL/L (135-145); TOTAL CARBON DIOXIDE 24.7 MMOL/L (24-32); TOTAL PROTEIN 6.2 G/DL (6.4-8.2); eGFR > 90 ML/MIN
[2018-01-08 06:24] LABS: BASOPHILS # (AUTO) 0.2 X10'3 (0-0.2); BASOPHILS % (AUTO) 2.3 % (0-1); EOSINOPHILS % (AUTO) 0 % (0-6); HEMATOCRIT 27.2 % (42.0-52.0); HEMOGLOBIN 8.9 g/dl (14.0-17.9); LYMPHOCYTES # (AUTO) 0.6 X10'3 (1.1-4.8); LYMPHOCYTES % (AUTO) 6.8 % (21-51); MEAN CORPUSCULAR HEMOGLOBIN 31.6 PG (27.0-31.0); MEAN CORPUSCULAR HGB CONC 32.9 % (33.0-36.5); MEAN CORPUSCULAR VOLUME 96.1 FL (78-98); MEAN PLATELET VOLUME 8.4 FL (7.4-10.4); MONOCYTES # (AUTO) 0.3 X10'3 (0-0.9); MONOCYTES % (AUTO) 4.1 % (2-12); NEUTROPHILS # (AUTO) 7.4 X10'3 (1.8-7.7); NEUTROPHILS % (AUTO) 86.8 % (42-75); PLATELET COUNT 404 X10'3 (140-440); RED BLOOD COUNT 2.83 X10'6 (4.70-6.10); RED CELL DISTRIBUTION WIDTH 13.3 % (11.5-14.5); WHITE BLOOD COUNT 8.5 X10'3 (4.5-11.0)
[2018-01-08 07:17] LABS: COMPLEMENT C3, SERUM 161 mg/dL (82-167); COMPLEMENT C4, SERUM 35 mg/dL (14-44)
[2018-01-08 07:23] VITALS: BP 111/42
[2018-01-08] MEDS: triamcinolone acetonide 0.5% cream 15gm TP SCH (08:00)
[2018-01-08] MEDS: CefTRIAXone/D5W-Rocephin 1gm 50 ML IV SCH (09:10)
[2018-01-08] MEDS: lactobacillus rhamnosus 10,000 MMU CELLS/CAPSULE PO SCH (09:11)
[2018-01-08] MEDS: enoxaparin 40mg/0.4ml syringe SUBCUT SCH (09:11)
[2018-01-08] MEDS: methylPREDNISolone sod succ 125mg/2ml vial IV SCH (09:11)
[2018-01-08] MEDS: folic acid 1mg tablet PO SCH (09:11)
[2018-01-08] MEDS: pantoprazole 40mg Tablet.DR PO SCH (09:11)
[2018-01-08] MEDS: famotidine 20mg tablet PO SCH (09:11)
[2018-01-08] MEDS: levoTHYROXINE 75mcg tablet PO SCH (09:20)
[2018-01-08 12:39] VITALS: BP 122/75
[2018-01-08] MEDS ORDERED: CEPH250T PO (13:57)
[2018-01-08] MEDS ORDERED: FAMO20TA8 PO (13:57)
[2018-01-08] MEDS ORDERED: PRED10TA23 PO (13:57)
[2018-01-08] MEDS ORDERED: TRIA15CR61 TP (13:57)
[2018-01-08] MEDS ORDERED: LACT1CAP26 PO (13:57)
== END 2018-01-08 14:30 | disposition home health service (06) | DRG 606 ==
LOC: ER 10:35 → ED HOLD 14:06 → ORTHO 4S 19:40
PROVIDERS: ADMIT Internal Medicine; ATTEND Family Medicine
DX: L50.0 Allergic urticaria (principal); N17.0 Acute kidney failure with tubular necrosis; E03.9 Hypothyroidism, unspecified; E11.9 Type 2 diabetes mellitus without complications; E29.1 Testicular hypofunction; M06.9 Rheumatoid arthritis, unspecified; I10 Essential (primary) hypertension; J44.9 Chronic obstructive pulmonary disease, unspecified; S60.529A Blister (nonthermal) of unspecified hand, initial encounter; K21.9 Gastro-esophageal reflux disease without esophagitis; T50.905A Adverse effect of unspecified drugs, medicaments and biological substances, initial encounter; L08.9 Local infection of the skin and subcutaneous tissue, unspecified; Z96.651 Presence of right artificial knee joint; S90.829A Blister (nonthermal), unspecified foot, initial encounter; X58.XXXA Exposure to other specified factors, initial encounter; G89.29 Other chronic pain; I95.9 Hypotension, unspecified; M54.9 Dorsalgia, unspecified; Z90.49 Acquired absence of other specified parts of digestive tract; Z79.890 Hormone replacement therapy; Z79.899 Other long term (current) drug therapy; Z82.61 Family history of arthritis; Y92.89 Other specified places as the place of occurrence of the external cause; Y93.89 Activity, other specified; Y99.8 Other external cause status
CPT/HCPCS: 36415; 71045; 80053; 81001; 83605; 83735; 84100; 84145; 84484; 85025; 85610; 85651; 85730; 86160; 87040; 87070; 93005; 96361; 96372; 96374; 96375; 99285; G0378; J0171; J0696; J1100; J1200; J1650; J2270; J2405; J2930; J7030; J8610

== ENCOUNTER 2018-05-25 22:48 | Emergency (ER) | payer MEDICARE, BC ==
[~2018-05-25] VITALS: Ht 182.9 cm; Wt 83.0 kg
[~2018-05-25 22:48] MED LIST changes: +CEPH250T PO; +FAMO20TA8 PO; -HYDR-4353 PO; +LACT1CAP26 PO; -TEST5GEL2 TOP; +TRIA15CR61 TP
[2018-05-26 00:32] LABS: BASOPHILS # (AUTO) 0.1 X10'3 (0-0.2); BASOPHILS % (AUTO) 1.3 % (0-1); EOSINOPHILS # (AUTO) 0.2 X10'3 (0-0.9); EOSINOPHILS % (AUTO) 4.3 % (0-6); HEMATOCRIT 35.2 % (42.0-52.0); HEMOGLOBIN 12.2 g/dl (14.0-17.9); LYMPHOCYTES # (AUTO) 1.4 X10'3 (1.1-4.8); LYMPHOCYTES % (AUTO) 27.1 % (21-51); MEAN CORPUSCULAR HGB CONC 34.6 g/dL (33.0-36.5); MEAN CORPUSCULAR VOLUME 92.4 FL (78-98); MEAN PLATELET VOLUME 7.8 FL (7.4-10.4); MONOCYTES # (AUTO) 0.2 X10'3 (0-0.9); MONOCYTES % (AUTO) 4.3 % (2-12); NEUTROPHILS # (AUTO) 3.3 X10'3 (1.8-7.7); PLATELET COUNT 464 X10'3 (140-440); RED BLOOD COUNT 3.81 X10'6 (4.70-6.10); RED CELL DISTRIBUTION WIDTH 13.2 % (11.5-14.5); WHITE BLOOD COUNT 5.2 X10'3 (4.5-11.0)
[2018-05-26 00:47] LABS: ALANINE AMINOTRANSFERASE 35 U/L (12-78); ALBUMIN 3.3 G/DL (3.4-5.0); ALBUMIN/GLOBULIN RATIO 0.8 (1.1-1.5); ALKALINE PHOSPHATASE 165 IU/L (46-116); ANION GAP 9 (8-16); ASPARTATE AMINO TRANSFERASE 30 U/L (10-37); BILIRUBIN,TOTAL 0.5 MG/DL (0.1-1.0); BLOOD UREA NITROGEN 17 MG/DL (7-18); CALCIUM 9.9 MG/DL (8.5-10.1); CHLORIDE 98 MMOL/L (99-107); CREATININE 0.85 MG/DL (0.60-1.10); GLUCOSE 88 MG/DL (70-104); SODIUM 134 MMOL/L (135-145); TOTAL CARBON DIOXIDE 26.8 MMOL/L (24-32); TOTAL PROTEIN 7.5 G/DL (6.4-8.2); eGFR > 90 ML/MIN
[2018-05-26 00:56] LABS: PROTHROMBIN TIME 9.8 SECONDS (9.0-12.0)
[2018-05-26] MEDS ORDERED: morphine 4 MG/ML inj SYRINge IV ONE (01:30)
[2018-05-26] MEDS ORDERED: ondansetron/PF 4mg/2ml inj IV ONE ×2 (01:30→01:55)
[2018-05-26] MEDS ORDERED: morphine 10mg/ml inj. IV PRN (01:55)
[2018-05-26] MEDS ORDERED: normal saline 1000ML IV soln IVB ONE (01:55)
[2018-05-26 02:03] LABS: CLARITY,URINE CLEAR (Clear); COLOR,URINE YELLOW (Yellow); GLUCOSE, URINE NEGATIVE (Neg); KETONES,URINE 15 mg/dl (Neg); LEUKOCYTE ESTERASE ,URINE NEGATIVE (Neg); NITRITES, URINE NEGATIVE (Neg); OCCULT BLOOD,URINE NEGATIVE (Neg); PROTEIN,URINE NEGATIVE (Neg); UROBILINOGEN,URINE 0.2 E.U/dL (0.2-1.0)
[2018-05-26 02:14] LABS: UA COLLECTION TYPE CLN CATCH MIDSTREAM
[2018-05-26 02:19] VITALS: BP 138/69
[2018-05-26] MEDS ORDERED: morphine 10mg/ml inj. IV ONE (03:25)
[2018-05-26] MEDS ORDERED: SUCR1TAB34 PO (03:31)
== END 2018-05-26 03:52 | disposition home or self-care (01) ==
LOC: ER 22:48
DX: R10.9 Unspecified abdominal pain (principal); R11.2 Nausea with vomiting, unspecified; J44.9 Chronic obstructive pulmonary disease, unspecified; K21.9 Gastro-esophageal reflux disease without esophagitis; E11.9 Type 2 diabetes mellitus without complications; G89.29 Other chronic pain; Z98.890 Other specified postprocedural states; Z79.899 Other long term (current) drug therapy
CPT/HCPCS: 36415; 74176; 80053; 81003; 85025; 85610; 96361; 96374; 96375; 96376; 99284; J2270; J2405; J7030

== ENCOUNTER 2018-07-30 08:46 | Day surgery (SDC) | payer MEDICARE, BC ==
[2018-07-30] VITALS (15 sets, daily range): BP systolic 90–138; BP diastolic 54–77
[~2018-07-30] VITALS: Ht 182.9 cm; Wt 78.7 kg
[~2018-07-30 08:46] MED LIST changes: +SUCR1TAB34 PO
[2018-07-30] MEDS ORDERED: normal saline 1000ml 1,000 ML IV PRN (09:10)
[2018-07-30] MEDS ORDERED: LIDOcaine 1%/PF 5ML 10 MG/ML VIAL SQ ONE (09:20)
[2018-07-30] MEDS ORDERED: midazolam 2 mg/2 ml injection IV PRN (09:20)
[2018-07-30] MEDS ORDERED: fentaNYL/PF 50MCG/1 ML 2ML syringe IV PRN (09:20)
[2018-07-30] MEDS ORDERED: HYDR-4353 PO (09:38)
[2018-07-30 09:44] LABS: BASOPHILS % (AUTO) 0.5 % (0-1); EOSINOPHILS # (AUTO) 0.3 X10'3 (0-0.9); EOSINOPHILS % (AUTO) 5.1 % (0-6); HEMATOCRIT 30.3 % (42.0-52.0); HEMOGLOBIN 10.4 g/dl (14.0-17.9); LYMPHOCYTES # (AUTO) 2.3 X10'3 (1.1-4.8); LYMPHOCYTES % (AUTO) 37.6 % (21-51); MEAN CORPUSCULAR HEMOGLOBIN 31.4 PG (27.0-31.0); MEAN CORPUSCULAR HGB CONC 34.2 g/dL (33.0-36.5); MEAN CORPUSCULAR VOLUME 91.7 FL (78-98); MEAN PLATELET VOLUME 7.6 FL (7.4-10.4); MONOCYTES # (AUTO) 0.7 X10'3 (0-0.9); MONOCYTES % (AUTO) 11.5 % (2-12); NEUTROPHILS # (AUTO) 2.7 X10'3 (1.8-7.7); NEUTROPHILS % (AUTO) 45.3 % (42-75); PLATELET COUNT 394 X10'3 (140-440); RED CELL DISTRIBUTION WIDTH 13.9 % (11.5-14.5); WHITE BLOOD COUNT 6.1 X10'3 (4.5-11.0)
[2018-07-30 09:48] LABS: ALBUMIN 3.3 G/DL (3.4-5.0); ANION GAP 6 (8-16); BLOOD UREA NITROGEN 13 MG/DL (7-18); BUN/CREATININE RATIO 14.1 (5.4-32.0); CALCIUM 9.7 MG/DL (8.5-10.1); CHLORIDE 104 MMOL/L (99-107); CREATININE 0.92 MG/DL (0.60-1.10); GLUCOSE 86 MG/DL (70-104); POTASSIUM 3.6 MMOL/L (3.5-5.1); SODIUM 136 MMOL/L (135-145); TOTAL CARBON DIOXIDE 26.5 MMOL/L (24-32); eGFR 83 ML/MIN
[2018-07-30] MEDS ORDERED: midazolam 2 mg/2 ml injection ONE (09:48)
[2018-07-30] MEDS ORDERED: fentaNYL/PF 50MCG/1 ML 2ML syringe ONE (09:49)
== END 2018-07-30 12:20 | disposition home or self-care (01) ==
LOC: SSTAY O 08:46
PROVIDERS: ATTEND Radiology Vascular & Interventional Radiology
DX: T81.40XA Infection following a procedure, unspecified, initial encounter (principal); M54.6 Pain in thoracic spine; Z79.899 Other long term (current) drug therapy; Z82.61 Family history of arthritis
CPT/HCPCS: 10160; 36415; 77012; 80048; 85025; 87070; J2250; J3010; J7030; 99152; 99153

== ENCOUNTER 2018-10-02 08:34 | Outpatient (CLI) | payer MEDICARE, BC ==
[~2018-10-02 08:34] MED LIST changes: -CEPH250T PO; -FAMO20TA8 PO; -FOLI1TAB16 PO; +HYDR-4353 PO; -LACT1CAP26 PO; -METH2.5T PO; -PANT-47 PO; -SUCR1TAB34 PO; -TRIA15CR61 TP
== END 2018-10-02 23:59 | disposition home or self-care (01) ==
LOC: RAD 08:34
PROVIDERS: ATTEND Orthopaedic Surgery Orthopaedic Surgery of the Spine
DX: M47.815 Spondylosis without myelopathy or radiculopathy, thoracolumbar region (principal); M43.8X4 Other specified deforming dorsopathies, thoracic region; M43.26 Fusion of spine, lumbar region; M40.294 Other kyphosis, thoracic region; J44.9 Chronic obstructive pulmonary disease, unspecified; I10 Essential (primary) hypertension; E11.9 Type 2 diabetes mellitus without complications; Z96.651 Presence of right artificial knee joint; Z90.49 Acquired absence of other specified parts of digestive tract; Z87.891 Personal history of nicotine dependence
CPT/HCPCS: 72128; 78306; A9503

== ENCOUNTER 2019-03-08 14:24 | Emergency (ER) | payer MEDICARE, BC ==
[~2019-03-08] VITALS: Ht 182.9 cm; Wt 80.5 kg
[2019-03-08 14:56] VITALS: BP 134/68
[2019-03-08] MEDS ORDERED: ketorolac trometh. 30mg/ml inj. IM ONE (16:20)
[2019-03-08] MEDS ORDERED: oxyCODONE/APAP 10/325mg tablet PO ONE (16:20)
[2019-03-08] MEDS ORDERED: OXYC-150 PO (16:33)
--- NOTE | 2019-03-08 16:44 | NUR ---
Break relief for primary nurse. Pt assisted to remove his pants for the provider to complete a better exam of the right knee.
--- NOTE | 2019-03-08 16:56 | NUR ---
Dr. Foley is with the patient at this time.
== END 2019-03-08 17:11 | disposition home or self-care (01) ==
LOC: ER 14:24
DX: M25.561 Pain in right knee (principal); G89.29 Other chronic pain; J44.9 Chronic obstructive pulmonary disease, unspecified; K21.9 Gastro-esophageal reflux disease without esophagitis; E11.9 Type 2 diabetes mellitus without complications; Z98.890 Other specified postprocedural states
CPT/HCPCS: 29505; 73564; 96372; 99284; J1885

== ENCOUNTER 2019-03-24 10:52 | Emergency (ER) | payer MEDICARE, BC ==
[~2019-03-24] VITALS: Ht 177.8 cm; Wt 80.5 kg
[~2019-03-24 10:52] MED LIST changes: +OXYC-150 PO
[2019-03-24 11:04] VITALS: BP 102/63
== END 2019-03-24 12:28 | disposition home or self-care (01) ==
LOC: ER 10:52
DX: M25.461 Effusion, right knee (principal); G89.29 Other chronic pain; J44.9 Chronic obstructive pulmonary disease, unspecified; K21.9 Gastro-esophageal reflux disease without esophagitis; E11.9 Type 2 diabetes mellitus without complications; Z98.890 Other specified postprocedural states; Z79.899 Other long term (current) drug therapy
CPT/HCPCS: 99281

== ENCOUNTER 2019-06-17 07:53 | Day surgery (SDC) | payer MEDICARE, BC ==
[2019-06-17] VITALS (12 sets, daily range): BP systolic 93–122; BP diastolic 63–74
[~2019-06-17] VITALS: Ht 182.9 cm; Wt 81.1 kg
[2019-06-17] MEDS ORDERED: nitroGLYCERIN 0.4mg SUBLingual tab SL PRN ×2 (08:15→12:15)
[2019-06-17] MEDS ORDERED: normal saline 1,000 ML IV SCH (08:15)
[2019-06-17] MEDS ORDERED: LORazepam 0.5 MG tablet PO PRN (08:15)
[2019-06-17] MEDS ORDERED: diphenhydrAMINE 25mg capsule PO PRN (08:15)
[2019-06-17] MEDS ORDERED: METH2.5T PO (08:27)
[2019-06-17] MEDS ORDERED: TRAM50TA2 PO (08:27)
[2019-06-17] MEDS ORDERED: MV-M1TAB19 PO (08:27)
[2019-06-17] MEDS ORDERED: IBUP-24 PO (08:28)
[2019-06-17 09:13] LABS: ALBUMIN 3.3 G/DL (3.4-5.0); ANION GAP 8 (8-16); BLOOD UREA NITROGEN 24 MG/DL (7-18); BUN/CREATININE RATIO 28.2 (5.4-32.0); CALCIUM 8.1 MG/DL (8.5-10.1); CHLORIDE 107 MMOL/L (99-107); CREATININE 0.85 MG/DL (0.60-1.10); GLUCOSE 76 MG/DL (70-104); POTASSIUM 3.6 MMOL/L (3.5-5.1); SODIUM 138 MMOL/L (135-145); TOTAL CARBON DIOXIDE 23.4 MMOL/L (24-32); eGFR 90 ML/MIN
[2019-06-17 09:20] LABS: PARTIAL THROMBOPLASTIN TIME 29 SECONDS (22-32)
[2019-06-17 09:21] LABS: BASOPHILS # (AUTO) 0.1 X10'3 (0-0.2); BASOPHILS % (AUTO) 1.2 % (0-1); EOSINOPHILS # (AUTO) 0.3 X10'3 (0-0.9); EOSINOPHILS % (AUTO) 4.9 % (0-6); HEMATOCRIT 36.7 % (42.0-52.0); HEMOGLOBIN 12.5 g/dl (14.0-17.9); LYMPHOCYTES # (AUTO) 2.6 X10'3 (1.1-4.8); LYMPHOCYTES % (AUTO) 38.9 % (21-51); MEAN CORPUSCULAR HEMOGLOBIN 31.3 PG (27.0-31.0); MEAN CORPUSCULAR VOLUME 92.3 FL (78-98); MEAN PLATELET VOLUME 7.9 FL (7.4-10.4); MONOCYTES # (AUTO) 0.7 X10'3 (0-0.9); MONOCYTES % (AUTO) 10.8 % (2-12); NEUTROPHILS # (AUTO) 2.9 X10'3 (1.8-7.7); NEUTROPHILS % (AUTO) 44.2 % (42-75); PLATELET COUNT 294 X10'3 (140-440); RED BLOOD COUNT 3.98 X10'6 (4.70-6.10); RED CELL DISTRIBUTION WIDTH 13.4 % (11.5-14.5); WHITE BLOOD COUNT 6.7 X10'3 (4.5-11.0)
[2019-06-17] MEDS ORDERED: midazolam 2 mg/2 ml injection ONE ×2 (10:09→11:01)
[2019-06-17] MEDS ORDERED: fentaNYL/PF 50MCG/1 ML 2ML syringe ONE ×2 (10:09→11:00)
[2019-06-17] MEDS ORDERED: iohexol 350MG/ML 100ml bottle IV ONE (10:10)
[2019-06-17] MEDS ORDERED: LIDOcaine 1% (10mg/ml)w/preservative injection 20ml MDV ONE (10:10)
[2019-06-17] MEDS ORDERED: iohexol 350 MG/ML 50ML vial IV ONE (10:10)
[2019-06-17] MEDS ORDERED: heparin 1,000 UNITS/NS 500ml 500 ML ONE ×2 (10:10)
[2019-06-17] MEDS ORDERED: OXAZEpam 15mg capsule PO PRN (12:15)
[2019-06-17] MEDS ORDERED: proCHLORperazine 10 MG/2 ml inj IV PRN (12:15)
[2019-06-17] MEDS ORDERED: HYDROcodone/acetaminophen 5mg/325mg tablet PO PRN (12:15)
[2019-06-17] MEDS ORDERED: HYDROcodone/acetaminophen 10/325mg tab PO PRN (12:15)
[2019-06-17] MEDS ORDERED: ondansetron/PF 4mg/2ml inj IV PRN (12:15)
[2019-06-17] MEDS ORDERED: HYDROmorphone 1 mg/ml syringe IV ONE (15:05)
== END 2019-06-17 18:00 | disposition home or self-care (01) ==
LOC: SSTAY O 07:53 → MED 3N 08:03 → SSTAY O 18:00
PROVIDERS: ATTEND Internal Medicine Cardiovascular Disease
DX: R94.39 Abnormal result of other cardiovascular function study (principal); I25.119 Atherosclerotic heart disease of native coronary artery with unspecified angina pectoris; M06.9 Rheumatoid arthritis, unspecified; G89.4 Chronic pain syndrome; F11.21 Opioid dependence, in remission; F17.210 Nicotine dependence, cigarettes, uncomplicated; E03.9 Hypothyroidism, unspecified; J44.9 Chronic obstructive pulmonary disease, unspecified; Z79.899 Other long term (current) drug therapy; Z79.01 Long term (current) use of anticoagulants
CPT/HCPCS: 71046; 80048; 85025; 85610; 85730; 93458; 99152; 99153; C1769; J1170; J1644; J2001; J2250; J3010; J7030; Q0163; Q9967; 93005; A4620; C1760

== ENCOUNTER 2019-07-25 12:04 | Inpatient (IN) | payer MEDICARE, BC ==
[~2019-07-25] VITALS: Ht 182.9 cm; Wt 81.0 kg
[~2019-07-25 12:04] MED LIST changes: +CHOL10006 PO; -HYDR-4353 PO; +IBUP-24 PO; +METH2.5T55 PO; -OXYC-150 PO; +TRAM50TA2 PO
[2019-07-25] MEDS ORDERED: normal saline 1000ML IV soln IVB ONE ×2 (12:15→14:10)
[2019-07-25 12:59] LABS: BASOPHILS % (AUTO) 0.3 % (0-1); EOSINOPHILS # (AUTO) 0.5 X10'3 (0-0.9); EOSINOPHILS % (AUTO) 7.8 % (0-6); HEMATOCRIT 29.9 % (42.0-52.0); HEMOGLOBIN 10.2 g/dl (14.0-17.9); LYMPHOCYTES % (AUTO) 14.9 % (21-51); MEAN CORPUSCULAR HEMOGLOBIN 31.4 PG (27.0-31.0); MEAN CORPUSCULAR HGB CONC 34.2 g/dL (33.0-36.5); MEAN CORPUSCULAR VOLUME 91.8 FL (78-98); MEAN PLATELET VOLUME 8.2 FL (7.4-10.4); MONOCYTES % (AUTO) 14.8 % (2-12); NEUTROPHILS # (AUTO) 4.1 X10'3 (1.8-7.7); NEUTROPHILS % (AUTO) 62.2 % (42-75); PLATELET COUNT 244 X10'3 (140-440); RED BLOOD COUNT 3.25 X10'6 (4.70-6.10); RED CELL DISTRIBUTION WIDTH 12.2 % (11.5-14.5); WHITE BLOOD COUNT 6.6 X10'3 (4.5-11.0)
[2019-07-25 13:09] LABS: D-DIMER 3.99 MG/L FEU (0-0.50)
[2019-07-25 13:10] LABS: ALANINE AMINOTRANSFERASE 46 U/L (12-78); ALBUMIN 2.8 G/DL (3.4-5.0); ALBUMIN/GLOBULIN RATIO 0.7 (1.1-1.5); ALKALINE PHOSPHATASE 244 IU/L (46-116); ANION GAP 10 (8-16); ASPARTATE AMINO TRANSFERASE 52 U/L (10-37); BILIRUBIN,TOTAL 0.6 MG/DL (0.1-1.0); BLOOD UREA NITROGEN 18 MG/DL (7-18); BUN/CREATININE RATIO 11.7 (5.4-32.0); CHLORIDE 96 MMOL/L (99-107); CREATININE 1.54 MG/DL (0.60-1.10); GLUCOSE 82 MG/DL (70-104); POTASSIUM 4.3 MMOL/L (3.5-5.1); SODIUM 128 MMOL/L (135-145); TOTAL CARBON DIOXIDE 22.1 MMOL/L (24-32); TOTAL PROTEIN 6.9 G/DL (6.4-8.2); eGFR 46 ML/MIN
[2019-07-25 13:18] LABS: MAGNESIUM 1.9 MG/DL (1.5-2.4); TROPONIN I < 0.04 NG/ML (0.0-0.05)
[2019-07-25 13:36] LABS: OCCULT BLOOD STOOL NEGATIVE (Neg)
[2019-07-25] MEDS ORDERED: enoxaparin 80mg/0.8ml syringe SUBCUT ONE (13:45)
[2019-07-25] MEDS ORDERED: enoxaparin 100mg/ml syringe SUBCUT ONE (13:45)
[2019-07-25] MEDS ORDERED: magnesium 2GM in 50ml NS 50 ML IV PRN (14:40)
[2019-07-25] MEDS ORDERED: acetaminophen 325mg tablet PO PRN ×2 (14:40)
[2019-07-25] MEDS ORDERED: diphenhydrAMINE 25mg capsule PO PRN (14:40)
[2019-07-25] MEDS ORDERED: mag hydrox/Alum hydrox/simeth 30ml oral suspension PO PRN (14:40)
[2019-07-25] MEDS ORDERED: HYDROcodone/acetaminophen 5mg/325mg tablet PO PRN (14:40)
[2019-07-25] MEDS ORDERED: potassium CL 10mEq/100ml bag 100 ML IV PRN ×2 (14:40)
[2019-07-25] MEDS ORDERED: potassium Cl 20 mEq SR tablet PO PRN (14:40)
[2019-07-25] MEDS ORDERED: magnesium hydroxide 30ml (MOM) UD suspension PO PRN (14:40)
[2019-07-25] MEDS ORDERED: morphine 2 MG/ML inj. syringe IV PRN ×2 (14:40)
[2019-07-25] MEDS ORDERED: bisacodyl 10mg suppository rectal RC PRN (14:40)
[2019-07-25] MEDS ORDERED: magnesium 4gm in 100ml NS 100 ML IV PRN (14:40)
[2019-07-25] MEDS ORDERED: ondansetron/PF 4mg/2ml inj IV PRN (14:40)
[2019-07-25] MEDS ORDERED: magnesium Cl slow-release 64mg tablet PO PRN (14:40)
[2019-07-25] MEDS ORDERED: acetaminophen 650mg rectal suppository RC PRN (14:40)
[2019-07-25] MEDS ORDERED: ondansetron/PF 4mg/2ml inj IV ONE (14:45)
[2019-07-25] MEDS: linezolid 600mg/300ml PREMIX 300 ML IV SCH ×2 (14:55→20:13)
[2019-07-25] MEDS ORDERED: iohexol 350MG/ML 100ml bottle IV ONE (14:57)
[2019-07-25 15:09] LABS: HEMOGLOBIN A1C 4.9 % (4.5-6.2)
[2019-07-25] MEDS ORDERED: TEST5GEL2 TOP (15:37)
[2019-07-25 15:40] LABS: C DIFF ANTIGEN NEGATIVE (NEGATIVE); C DIFF SPECIMEN=DIARRHEA? ACCEPTABLE; C DIFFICILE TOXINS A&B NEGATIVE (Neg)
[2019-07-25] MEDS: piperacillin/tazo 3.375gm/50ml 50 ML IV SCH ×2 (15:50→23:44)
--- NOTE | 2019-07-25 16:06 | NUR ---
Patient in room ED 3 will be admitted to PCU 3012C. I have received report from Harshal HIDALGO and had the opportunity to ask questions and assume patient care.
[2019-07-25 16:25] VITALS: BP 123/77
[2019-07-25] MEDS: HYDROcodone/acetaminophen 10/325mg tab PO PRN (16:56)
[2019-07-25] MEDS: normal saline 1000ml 1,000 ML IV SCH (17:00)
[2019-07-25 18:00] VITALS: BP 92/60
--- NOTE | 2019-07-25 18:14 | NUR ---
Patient in room PCU 3012. I have received report from José Miguel HIDALGO and had the opportunity to ask questions and assume patient care.
--- NOTE | 2019-07-25 18:18 | NUR ---
Problems reprioritized. Patient report given, questions answered & plan of care reviewed with Gerald HIDALGO.
[2019-07-25] MEDS ORDERED: normal saline 1000ml 1,000 ML IV ONE (18:55)
[2019-07-25] MEDS: pantoprazole 40 MG vial IV SCH (20:13)
[2019-07-25] MEDS: loperamide 2mg capsule PO PRN (20:20)
[2019-07-25] MEDS: K and/or MAG REPLACEMENT MC SCH (20:26)
[2019-07-25 21:25] LABS: OCCULT BLOOD STOOL NEGATIVE (Neg)
[2019-07-25 22:00] VITALS: BP 109/54
[2019-07-26] VITALS (9 sets, daily range): BP systolic 84–131; BP diastolic 51–68
[2019-07-26] MEDS: normal saline 1000ml 1,000 ML IV SCH ×3 (00:40→22:04)
[2019-07-26] MEDS: HYDROcodone/acetaminophen 10/325mg tab PO PRN ×3 (04:43→22:03)
--- NOTE | 2019-07-26 06:24 | NUR ---
Problems reprioritized. Patient report given, questions answered & plan of care reviewed with Katelin HIDALGO.
[2019-07-26 06:46] LABS: EOSINOPHILS # (AUTO) 0.4 X10'3 (0-0.9); EOSINOPHILS % (AUTO) 9.9 % (0-6); HEMATOCRIT 23.2 % (42.0-52.0); HEMOGLOBIN 7.9 g/dl (14.0-17.9); LYMPHOCYTES # (AUTO) 0.8 X10'3 (1.1-4.8); LYMPHOCYTES % (AUTO) 18.3 % (21-51); MEAN CORPUSCULAR HEMOGLOBIN 31.1 PG (27.0-31.0); MEAN CORPUSCULAR HGB CONC 34.1 g/dL (33.0-36.5); MEAN CORPUSCULAR VOLUME 91.2 FL (78-98); MEAN PLATELET VOLUME 7.9 FL (7.4-10.4); MONOCYTES # (AUTO) 0.6 X10'3 (0-0.9); MONOCYTES % (AUTO) 12.6 % (2-12); NEUTROPHILS # (AUTO) 2.6 X10'3 (1.8-7.7); NEUTROPHILS % (AUTO) 58.2 % (42-75); PLATELET COUNT 208 X10'3 (140-440); RED BLOOD COUNT 2.54 X10'6 (4.70-6.10); RED CELL DISTRIBUTION WIDTH 12.4 % (11.5-14.5); WHITE BLOOD COUNT 4.4 X10'3 (4.5-11.0)
[2019-07-26 06:58] LABS: ALANINE AMINOTRANSFERASE 33 U/L (12-78); ALBUMIN 2.2 G/DL (3.4-5.0); ALBUMIN/GLOBULIN RATIO 0.6 (1.1-1.5); ALKALINE PHOSPHATASE 174 IU/L (46-116); ANION GAP 12 (8-16); ASPARTATE AMINO TRANSFERASE 36 U/L (10-37); BILIRUBIN,TOTAL 0.4 MG/DL (0.1-1.0); BLOOD UREA NITROGEN 10 MG/DL (7-18); BUN/CREATININE RATIO 10.6 (5.4-32.0); CALCIUM 7.9 MG/DL (8.5-10.1); CHLORIDE 103 MMOL/L (99-107); CHOL/HDL RATIO 6.3 (0.00-4.99); CHOLESTEROL 114 MG/DL (0-200); CREATININE 0.94 MG/DL (0.60-1.10); GLUCOSE 85 MG/DL (70-104); HDL CHOLESTEROL 18 MG/DL (35-60); LDL CHOLESTEROL 79 MG/DL (50-100); POTASSIUM 3.8 MMOL/L (3.5-5.1); SODIUM 134 MMOL/L (135-145); TOTAL CARBON DIOXIDE 19.4 MMOL/L (24-32); TOTAL PROTEIN 5.7 G/DL (6.4-8.2); TRIGLYCERIDES 87 MG/DL (20-135); eGFR 81 ML/MIN
--- NOTE | 2019-07-26 07:30 | NUR ---
Patient in room PCU 3012. I have received report from Gerald HIDALGO and had the opportunity to ask questions and assume patient care. Patients blood pressure was taken twice by RN, reading 86/68 (62). Pt. is asymptomatic. Elevated legs, rechecked blood pressure and reading was 90/70. Will continue to monitor closely.
--- NOTE | 2019-07-26 07:45 | NUR ---
MD made aware of low BP trends and informed about current IV fluids and the current rate. No new orders provided. MD also made aware of H&H trends. No new orders.
[2019-07-26] MEDS: K and/or MAG REPLACEMENT MC SCH ×2 (08:00→20:00)
[2019-07-26] MEDS: pantoprazole 40 MG vial IV SCH (08:39)
[2019-07-26] MEDS: piperacillin/tazo 3.375gm/50ml 50 ML IV SCH ×2 (08:40→16:04)
[2019-07-26] MEDS: linezolid 600mg tablet PO SCH ×2 (08:40→20:44)
--- NOTE | 2019-07-26 10:02 | NUR ---
PAGER ID: [phone] MESSAGE: [id number] Giovani Gabriel - Franco is adamently refusing his MRI, stated he has severe clausterphobia and will not do it unless he is completely "Knocked out." Katelin HIDALGO [id number]
--- NOTE | 2019-07-26 12:44 | NUR ---
zyvox consult: Pt s/p R TKA 2 days ago on prior admit. Pt seen by RD for written/verbal zyvox/high protein eds w/ RD contact information provided. Pt is agreeable to [facility]; notified. Addendum: 07/26/19 at [address] Amended: Links added.
[2019-07-26] MEDS ORDERED: iohexol 300mg/ml 100ml inj. ONE (12:53)
[2019-07-26] MEDS: loperamide 2mg capsule PO PRN (14:03)
[2019-07-26 14:26] LABS: CLARITY,URINE CLEAR (Clear); COLOR,URINE YELLOW (Yellow); GLUCOSE, URINE NEGATIVE (Neg); KETONES,URINE 15 mg/dl (Neg); LEUKOCYTE ESTERASE ,URINE NEGATIVE (Neg); NITRITES, URINE NEGATIVE (Neg); OCCULT BLOOD,URINE TRACE-INTACT (Neg); PH,URINE 5.5 (4.8-8.0); PROTEIN,URINE NEGATIVE (Neg); UROBILINOGEN,URINE 0.2 E.U/dL (0.2-1.0)
[2019-07-26 14:30] LABS: UA COLLECTION TYPE CLN CATCH MIDSTREAM
[2019-07-26 14:39] LABS: BACTERIA,URINE NONE SEEN /HPF (Neg); COARSE GRANULAR CAST 0-3 /LPF (NEGATIVE); MUCUS STRANDS NONE SEEN /LPF (Neg); RBC,URINE 0-2 /HPF (0-2); RENAL CELLS, URINE FEW /HPF; SQUAMOUS EPITHELIAL CELL,UR NONE SEEN /LPF (FEW); WBC,URINE NONE SEEN /HPF (0-4)
--- NOTE | 2019-07-26 18:16 | NUR ---
Problems reprioritized. Patient report given, questions answered & plan of care reviewed with Farrah HIDALGO. Patient just finished dinner, in good spirits and thanked nursing for care provided.
--- NOTE | 2019-07-26 18:30 | NUR ---
Patient in room PCU 3012. I have received report from CINDY and had the opportunity to ask questions and assume patient care.
[2019-07-27] VITALS (7 sets, daily range): BP systolic 90–105; BP diastolic 54–65
[2019-07-27] MEDS: piperacillin/tazo 3.375gm/50ml 50 ML IV SCH ×3 (00:49→16:05)
[2019-07-27 05:24] LABS: BASOPHILS % (AUTO) 0.7 % (0-1); EOSINOPHILS # (AUTO) 0.5 X10'3 (0-0.9); EOSINOPHILS % (AUTO) 11.2 % (0-6); HEMOGLOBIN 7.3 g/dl (14.0-17.9); LYMPHOCYTES # (AUTO) 0.9 X10'3 (1.1-4.8); LYMPHOCYTES % (AUTO) 22.1 % (21-51); MEAN CORPUSCULAR HEMOGLOBIN 31.6 PG (27.0-31.0); MEAN CORPUSCULAR VOLUME 90.4 FL (78-98); MEAN PLATELET VOLUME 7.4 FL (7.4-10.4); MONOCYTES # (AUTO) 0.5 X10'3 (0-0.9); MONOCYTES % (AUTO) 11.3 % (2-12); NEUTROPHILS # (AUTO) 2.2 X10'3 (1.8-7.7); NEUTROPHILS % (AUTO) 54.7 % (42-75); PLATELET COUNT 219 X10'3 (140-440); RED CELL DISTRIBUTION WIDTH 12.3 % (11.5-14.5); WHITE BLOOD COUNT 4.1 X10'3 (4.5-11.0)
[2019-07-27 05:31] LABS: HEMATOCRIT 20.7 % (42.0-52.0)
[2019-07-27 05:39] LABS: ALANINE AMINOTRANSFERASE 24 U/L (12-78); ALBUMIN 2.1 G/DL (3.4-5.0); ALBUMIN/GLOBULIN RATIO 0.6 (1.1-1.5); ALKALINE PHOSPHATASE 131 IU/L (46-116); ANION GAP 8 (8-16); ASPARTATE AMINO TRANSFERASE 28 U/L (10-37); BILIRUBIN,TOTAL 0.4 MG/DL (0.1-1.0); BLOOD UREA NITROGEN 6 MG/DL (7-18); BUN/CREATININE RATIO 6.8 (5.4-32.0); CALCIUM 7.7 MG/DL (8.5-10.1); CHLORIDE 105 MMOL/L (99-107); CREATININE 0.88 MG/DL (0.60-1.10); GLUCOSE 91 MG/DL (70-104); MAGNESIUM 1.8 MG/DL (1.5-2.4); PHOSPHORUS 2.5 MG/DL (2.3-4.5); POTASSIUM 3.6 MMOL/L (3.5-5.1); SODIUM 137 MMOL/L (135-145); TOTAL CARBON DIOXIDE 23.6 MMOL/L (24-32); TOTAL PROTEIN 5.4 G/DL (6.4-8.2); eGFR 87 ML/MIN
--- NOTE | 2019-07-27 06:31 | NUR ---
Problems reprioritized. Patient report given, questions answered & plan of care reviewed with CINDY.
[2019-07-27] MEDS: normal saline 1000ml 1,000 ML IV SCH ×2 (06:40→16:06)
[2019-07-27] MEDS: K and/or MAG REPLACEMENT MC SCH ×2 (08:00→20:00)
[2019-07-27] MEDS: vitamin D (cholecalciferol) 1,000 unit tablet PO SCH (08:35)
[2019-07-27] MEDS: linezolid 600mg tablet PO SCH ×2 (08:35→21:48)
[2019-07-27] MEDS: pantoprazole 40mg Tablet.DR PO SCH (08:36)
[2019-07-27] MEDS: levoTHYROXINE 75mcg tablet PO SCH (08:39)
[2019-07-27] MEDS: lactose-reduced food (Ensure Enlive) - 237ml bottle PO SCH ×2 (11:00→12:30)
[2019-07-27] MEDS: HYDROcodone/acetaminophen 10/325mg tab PO PRN (17:27)
--- NOTE | 2019-07-27 17:54 | NUR ---
Per. Dr. Webber, Dr. Trinidad is going to come in and evaluate the patient today. Surgeon has yet to come in, patient was upset because he wants to take a shower but feels he will miss seeing the MD. Explained that nursing will inform him if the surgeon makes it in but he declined the shower at this point. Patient needs a lot of reassurance about care and is upset regarding his previous stay at [facility]. Pt's was here early but left stating, "I can't stand him." Patient is frusterated and wants to go home. A lot of extra 1:1 time spent with patient. MD is also aware of H&H trending down and ordered to decrease his NS to 50 ml/HR. Pt. was medicated for pain and is resting comfortably at this time.
--- NOTE | 2019-07-27 18:15 | NUR ---
Patient in room PCU 3012. I have received report from ROCKY Lomeli and had the opportunity to ask questions and assume patient care. Patient sitting up in bed, just finished dinner. He is A&O x3, ANDREW and is appropriate.
--- NOTE | 2019-07-27 18:44 | NUR ---
Problems reprioritized. Patient report given, questions answered & plan of care reviewed with Mary HIDALGO.
[2019-07-27] MEDS ORDERED: sodium ferric gluc complex inj 125 MG in normal saline 100ml IV soln 90 ML IV SCH (21:40)
--- NOTE | 2019-07-27 22:50 | NUR ---
Problems reprioritized. Patient report given, questions answered & plan of care reviewed with ROCKY Steel.
--- NOTE | 2019-07-27 22:51 | NUR ---
Patient in room PCU 3012. I have received report from ROCKY Hernandez and had the opportunity to ask questions and assume patient care.
[2019-07-28] MEDS: piperacillin/tazo 3.375gm/50ml 50 ML IV SCH ×2 (00:52→08:08)
[2019-07-28] MEDS: normal saline 1000ml 1,000 ML IV SCH (01:07)
[2019-07-28 01:18] VITALS: BP 106/64
[2019-07-28 05:51] LABS: BASOPHILS % (AUTO) 1.1 % (0-1); EOSINOPHILS # (AUTO) 0.5 X10'3 (0-0.9); EOSINOPHILS % (AUTO) 12.5 % (0-6); HEMATOCRIT 22.1 % (42.0-52.0); HEMOGLOBIN 7.7 g/dl (14.0-17.9); LYMPHOCYTES # (AUTO) 1.2 X10'3 (1.1-4.8); LYMPHOCYTES % (AUTO) 29.9 % (21-51); MEAN CORPUSCULAR HEMOGLOBIN 31.7 PG (27.0-31.0); MEAN CORPUSCULAR HGB CONC 34.8 g/dL (33.0-36.5); MEAN PLATELET VOLUME 7.4 FL (7.4-10.4); MONOCYTES # (AUTO) 0.4 X10'3 (0-0.9); MONOCYTES % (AUTO) 9.8 % (2-12); NEUTROPHILS # (AUTO) 1.9 X10'3 (1.8-7.7); NEUTROPHILS % (AUTO) 46.7 % (42-75); PLATELET COUNT 245 X10'3 (140-440); RED BLOOD COUNT 2.43 X10'6 (4.70-6.10); RED CELL DISTRIBUTION WIDTH 12.4 % (11.5-14.5); WHITE BLOOD COUNT 4.2 X10'3 (4.5-11.0)
[2019-07-28 05:59] LABS: ALANINE AMINOTRANSFERASE 25 U/L (12-78); ALBUMIN 2.1 G/DL (3.4-5.0); ALBUMIN/GLOBULIN RATIO 0.5 (1.1-1.5); ALKALINE PHOSPHATASE 117 IU/L (46-116); ANION GAP 9 (8-16); ASPARTATE AMINO TRANSFERASE 26 U/L (10-37); BILIRUBIN,TOTAL 0.5 MG/DL (0.1-1.0); BLOOD UREA NITROGEN 3 MG/DL (7-18); BUN/CREATININE RATIO 3.4 (5.4-32.0); CALCIUM 8.3 MG/DL (8.5-10.1); CHLORIDE 106 MMOL/L (99-107); CREATININE 0.87 MG/DL (0.60-1.10); GLUCOSE 87 MG/DL (70-104); MAGNESIUM 1.8 MG/DL (1.5-2.4); PHOSPHORUS 2.6 MG/DL (2.3-4.5); POTASSIUM 3.2 MMOL/L (3.5-5.1); SODIUM 140 MMOL/L (135-145); TOTAL CARBON DIOXIDE 24.7 MMOL/L (24-32); TOTAL PROTEIN 6.1 G/DL (6.4-8.2); eGFR 88 ML/MIN
--- NOTE | 2019-07-28 06:17 | NUR ---
Problems reprioritized. Patient report given, questions answered & plan of care reviewed with ROCKY Thomason.
--- NOTE | 2019-07-28 06:43 | NUR ---
Patient in room PCU 3012. I have received report from Milvia HIDALGO and had the opportunity to ask questions and assume patient care. Pt. is sleeping in no apparent distress.
[2019-07-28 07:00] VITALS: BP 100/65
[2019-07-28] MEDS: lactose-reduced food (Ensure Enlive) - 237ml bottle PO SCH (07:30)
[2019-07-28] MEDS: K and/or MAG REPLACEMENT MC SCH (08:00)
[2019-07-28] MEDS: linezolid 600mg tablet PO SCH (08:06)
[2019-07-28] MEDS: potassium Cl 20 mEq SR tablet PO PRN ×2 (08:06→12:40)
[2019-07-28] MEDS: pantoprazole 40mg Tablet.DR PO SCH (08:06)
[2019-07-28] MEDS: vitamin D (cholecalciferol) 1,000 unit tablet PO SCH (08:07)
[2019-07-28] MEDS: levoTHYROXINE 75mcg tablet PO SCH (08:07)
[2019-07-28] MEDS: loperamide 2mg capsule PO PRN (08:10)
--- NOTE | 2019-07-28 10:42 | NUR ---
Called Dr. Trinidad office to inquire about the POC. JUVENAL provided cell phone number, placed call to Dr. Trinidad, reached voicemail. LVM to return call to the unit.
--- NOTE | 2019-07-28 10:48 | NUR ---
PAGER ID: [phone] MESSAGE: [phone] Giovani Rios - Called Dr. Trinidad office, received cell phone number as he is not in the office. Left message to return call to [facility]. Katelin HIDALGO ext [phone]
[2019-07-28] MEDS ORDERED: PANT40TA4 PO (13:17)
[2019-07-28] MEDS ORDERED: AMOX-580 PO (13:17)
[2019-07-28] MEDS ORDERED: ASCO500C15 PO (13:17)
[2019-07-28] MEDS ORDERED: FERR324T4 PO (13:17)
[2019-07-28] MEDS ORDERED: ASPI-611 PO (13:20)
--- NOTE | 2019-07-28 13:42 | NUR ---
3016D Giovain Rios, pt. is discharging now, requesting raised toilet. Katelin HIDALGO
--- NOTE | 2019-07-28 13:56 | NUR ---
Patient was seen by Dr. Trinidad and Dr. Webber, both agreed that the patient can discharge. Pratik dressing removed by Dr. De Jesus. Pt. received a shower today. Patient is in normal sinus rhythm. WBC is within normal range. VSS. All discharge instructions and new medications reviewed with patient and all questions answered. Patient declined wanting nursing to make any of his follow up appointments, stated he has some written down at home. Pt. is extremely eager to discharge so he declined F/U appointments being made. Dressing to right knee is CD&I. Patient educated about K+ level. He received 2 doses of 20 meq today. Patient left in stable condition accompanied by .
[2019-07-30] MEDS ORDERED: FERR324T4 PO (18:52)
[2019-07-30] MEDS ORDERED: PANT40TA4 PO (18:52)
[2019-07-30] MEDS ORDERED: AMOX-580 PO (18:52)
[2019-07-30] MEDS ORDERED: ASPI-1265 PO (18:52)
[2019-07-30] MEDS ORDERED: VITC500T PO (18:52)
[2019-07-30] MEDS ORDERED: ASPI81TA52 PO (20:24)
[2019-07-30] MEDS ORDERED: QUET100T33 PO (20:43)
[2019-08-03] MEDS ORDERED: PRED2.5T4 PO (11:37)
== END 2019-07-28 14:02 | disposition home health service (06) | DRG 378 ==
LOC: ER 12:05 → ED HOLD 14:40 → PCU 3S 16:27
PROVIDERS: ADMIT Family Medicine; ATTEND Family Medicine
PROC: B32T1ZZ Computerized Tomography (CT Scan) of Left Pulmonary Artery using Low Osmolar Contrast (ICD-10-PCS; principal; 2019-07-25)
PROC: B3201ZZ Computerized Tomography (CT Scan) of Thoracic Aorta using Low Osmolar Contrast (ICD-10-PCS; 2019-07-25)
PROC: B32S1ZZ Computerized Tomography (CT Scan) of Right Pulmonary Artery using Low Osmolar Contrast (ICD-10-PCS; 2019-07-25)
PROC: BQ271ZZ Computerized Tomography (CT Scan) of Right Knee using Low Osmolar Contrast (ICD-10-PCS; 2019-07-26)
DX: K92.2 Gastrointestinal hemorrhage, unspecified (principal); E87.2 Acidosis; N17.9 Acute kidney failure, unspecified; E87.1 Hypo-osmolality and hyponatremia; K52.9 Noninfective gastroenteritis and colitis, unspecified; R55 Syncope and collapse; E86.1 Hypovolemia; E86.0 Dehydration; E11.9 Type 2 diabetes mellitus without complications; D50.9 Iron deficiency anemia, unspecified; D63.8 Anemia in other chronic diseases classified elsewhere; Z96.651 Presence of right artificial knee joint; M54.9 Dorsalgia, unspecified; G89.29 Other chronic pain; Z20.828 Contact with and (suspected) exposure to other viral communicable diseases; M25.561 Pain in right knee; K21.9 Gastro-esophageal reflux disease without esophagitis; E03.9 Hypothyroidism, unspecified; G47.33 Obstructive sleep apnea (adult) (pediatric); H54.62 Unqualified visual loss, left eye, normal vision right eye; J44.9 Chronic obstructive pulmonary disease, unspecified; M06.9 Rheumatoid arthritis, unspecified; Z79.899 Other long term (current) drug therapy; Z87.891 Personal history of nicotine dependence; Z90.49 Acquired absence of other specified parts of digestive tract
CPT/HCPCS: 36415; 70450; 71045; 71275; 73701; 80053; 80061; 81001; 82272; 82728; 83036; 83540; 83550; 83605; 83735; 83880; 84100; 84145; 84443; 84484; 85025; 85379; 85610; 86885; 86900; 86901; 87040; 87045; 87046; 87081; 87324; 87449; 89055; 93005; 93308; 93880; 93970; 97110; 97116; 97162; 97530; 99285; C9113; G0378; J1650; J2020; J2405; J2543; J2916; J7030; Q9967

== ENCOUNTER 2020-08-18 10:30 | Emergency (ER) | payer MEDICARE ==
[~2020-08-18] VITALS: Ht 182.9 cm; Wt 93.2 kg
[~2020-08-18 10:30] MED LIST changes: +ASPI81TA52 PO; +FERR324T4 PO; -IBUP-24 PO; -METH2.5T55 PO; +PANT40TA54 PO; +PRED2.5T4 PO; +QUET100T33 PO; +VITC500T PO
[2020-08-18] MEDS ORDERED: normal saline 1000ML IV soln IVB ONE ×2 (10:45→11:20)
[2020-08-18 11:08] LABS: BASOPHILS # (AUTO) 0.1 X10'3 (0-0.2); BASOPHILS % (AUTO) 0.7 % (0-1); EOSINOPHILS # (AUTO) 0.6 X10'3 (0-0.9); EOSINOPHILS % (AUTO) 7.1 % (0-6); HEMATOCRIT 36.4 % (42.0-52.0); HEMOGLOBIN 12.4 g/dl (14.0-17.9); LYMPHOCYTES # (AUTO) 2.3 X10'3 (1.1-4.8); LYMPHOCYTES % (AUTO) 26.7 % (21-51); MEAN CORPUSCULAR HEMOGLOBIN 31.4 PG (27.0-31.0); MEAN CORPUSCULAR VOLUME 92.4 FL (78-98); MEAN PLATELET VOLUME 8.2 FL (7.4-10.4); MONOCYTES # (AUTO) 0.8 X10'3 (0-0.9); MONOCYTES % (AUTO) 9.2 % (2-12); NEUTROPHILS # (AUTO) 4.8 X10'3 (1.8-7.7); NEUTROPHILS % (AUTO) 56.3 % (42-75); PLATELET COUNT 246 X10'3 (140-440); RED BLOOD COUNT 3.94 X10'6 (4.70-6.10); RED CELL DISTRIBUTION WIDTH 13.1 % (11.5-14.5); WHITE BLOOD COUNT 8.5 X10'3 (4.5-11.0)
[2020-08-18 11:28] LABS: ALANINE AMINOTRANSFERASE 31 U/L (12-78); ALBUMIN 3.4 G/DL (3.4-5.0); ALBUMIN/GLOBULIN RATIO 0.9 (1.1-1.5); ALKALINE PHOSPHATASE 51 IU/L (46-116); ANION GAP 9 (8-16); ASPARTATE AMINO TRANSFERASE 24 U/L (10-37); BILIRUBIN,TOTAL 0.4 MG/DL (0.1-1.0); BLOOD UREA NITROGEN 30 MG/DL (7-18); BUN/CREATININE RATIO 22.6 (5.4-32.0); CALCIUM 8.9 MG/DL (8.5-10.1); CHLORIDE 108 MMOL/L (99-107); CREATININE 1.33 MG/DL (0.60-1.10); GLUCOSE 75 MG/DL (70-104); POTASSIUM 3.8 MMOL/L (3.5-5.1); SODIUM 142 MMOL/L (135-145); TOTAL CARBON DIOXIDE 24.6 MMOL/L (24-32); eGFR 54 ML/MIN
[2020-08-18] MEDS ORDERED: TETanus/Pertussis (Acell)/Diphther VAC/PF (Tdap-Adult) 0.5ml syringe IMVAC ONE (11:40)
[2020-08-18 12:25] VITALS: BP 128/93
== END 2020-08-18 12:36 | disposition home or self-care (01) ==
LOC: ER 10:31
DX: S80.02XA Contusion of left knee, initial encounter (principal); S00.81XA Abrasion of other part of head, initial encounter; R55 Syncope and collapse; E86.0 Dehydration; K21.9 Gastro-esophageal reflux disease without esophagitis; E11.9 Type 2 diabetes mellitus without complications; E03.9 Hypothyroidism, unspecified; G89.29 Other chronic pain; Z20.3 Contact with and (suspected) exposure to rabies; Z98.890 Other specified postprocedural states; Z79.82 Long term (current) use of aspirin; Z79.899 Other long term (current) drug therapy; W19.XXXA Unspecified fall, initial encounter; Y93.89 Activity, other specified; Y92.89 Other specified places as the place of occurrence of the external cause; Y99.8 Other external cause status
CPT/HCPCS: 36415; 70450; 71045; 73560; 80053; 83735; 83880; 84484; 85025; 90471; 90715; 93005; 99285; J7030

== ENCOUNTER 2021-02-08 08:32 | Day surgery (SDC) | payer MEDICARE ==
[2021-02-01 14:44] LABS: CLARITY,URINE CLEAR (Clear); COLOR,URINE YELLOW (Yellow); GLUCOSE, URINE NEGATIVE (Neg); KETONES,URINE NEGATIVE (Neg); LEUKOCYTE ESTERASE ,URINE NEGATIVE (Neg); NITRITES, URINE NEGATIVE (Neg); OCCULT BLOOD,URINE NEGATIVE (Neg); PH,URINE 5.5 (4.8-8.0); PROTEIN,URINE NEGATIVE (Neg); UROBILINOGEN,URINE 0.2 E.U/dL (0.2-1.0)
[2021-02-01 14:46] LABS: BASOPHILS # (AUTO) 0.1 X10'3 (0-0.2); BASOPHILS % (AUTO) 0.9 % (0-1); EOSINOPHILS # (AUTO) 0.4 X10'3 (0-0.9); EOSINOPHILS % (AUTO) 6.1 % (0-6); LYMPHOCYTES # (AUTO) 2.1 X10'3 (1.1-4.8); LYMPHOCYTES % (AUTO) 32.9 % (21-51); MEAN CORPUSCULAR HGB CONC 34.8 g/dL (33.0-36.5); MEAN CORPUSCULAR VOLUME 91.9 FL (78-98); MEAN PLATELET VOLUME 7.4 FL (7.4-10.4); MONOCYTES # (AUTO) 0.6 X10'3 (0-0.9); MONOCYTES % (AUTO) 9.7 % (2-12); NEUTROPHILS # (AUTO) 3.2 X10'3 (1.8-7.7); NEUTROPHILS % (AUTO) 50.4 % (42-75); PRE OP HEMATOCRIT 33.2 % (42.0-52.0); PRE OP HEMOGLOBIN 11.5 g/dL (14.0-17.9); PRE OP PLATELET COUNT 286 X10'3 (140-440); RED BLOOD COUNT 3.61 X10'6 (4.70-6.10); RED CELL DISTRIBUTION WIDTH 12.9 % (11.5-14.5)
[2021-02-01 14:48] LABS: UA COLLECTION TYPE VOIDED
[2021-02-01 15:05] LABS: ALBUMIN 3.4 G/DL (3.4-5.0); ALKALINE PHOSPHATASE 66 IU/L (46-116); BLOOD UREA NITROGEN 26 MG/DL (7-18); CALCIUM 8.7 MG/DL (8.5-10.1); CHLORIDE 104 MMOL/L (99-107); CREATININE 1.18 MG/DL (0.60-1.10); PRE OP ALT 28 U/L (30-65); PRE OP ANION GAP 8 (8-16); PRE OP AST 22 U/L (10-37); PRE OP BILIRUB, TOTAL 0.3 MG/DL (0.0-1.0); PRE OP GLUCOSE 90 MG/DL (70-104); PRE OP POTASSIUM 3.7 MMOL/L (3.4-5.1); PRE OP SODIUM 138 MMOL/L (135-145); TOTAL PROTEIN 6.9 G/DL (6.4-8.2); eGFR 62 ML/MIN
[~2021-02-08] VITALS: Ht 175.3 cm; Wt 95.5 kg
[2021-02-08] VITALS (8 sets, daily range): BP systolic 105–114; BP diastolic 63–72
[~2021-02-08 08:32] MED LIST changes: -ASPI81TA52 PO; -CHOL10006 PO; -FERR324T4 PO; -PANT40TA54 PO; -PRED2.5T4 PO; -QUET100T33 PO; -TRAM50TA2 PO; -VITC500T PO; +cefazolin/dext.iso 2gm/50ml IV ONE; +famotidine 20mg tablet PO ONE; +ringers solution, lacted 1,000 ML IV SCH
[2021-02-08] MEDS ORDERED: bacitracin 15gm ointment TP ONE (10:27)
[2021-02-08] MEDS ORDERED: BUPIVAcaine/PF 2.5 mg/ml (0.25%) 30ml vial ONE (10:27)
[2021-02-08] MEDS ORDERED: hydrALAZINE 20mg/ml inj. IV PRN (11:20)
[2021-02-08] MEDS ORDERED: proCHLORperazine 10 MG/2 ml inj IV PRN (11:20)
[2021-02-08] MEDS ORDERED: morphine 4 MG/ML inj SYRINge IV PRN (11:20)
[2021-02-08] MEDS ORDERED: meperidine/PF 25mg/ml syringe IV PRN ×3 (11:20)
[2021-02-08] MEDS ORDERED: labetalol 20mg/4ml (5mg/ml) syringe IV PRN (11:20)
[2021-02-08] MEDS ORDERED: ringers solution, lacted 1,000 ML IV SCH (11:20)
[2021-02-08] MEDS ORDERED: ondansetron/PF 4mg/2ml inj IV PRN (11:20)
[2021-02-08] MEDS ORDERED: morphine 2 MG/ML inj. syringe IV PRN (11:20)
[2021-02-08] MEDS ORDERED: acetaminophen 1,000mg/100ml IV 100 ML IV PRN (11:20)
[2021-02-08] MEDS ORDERED: ketorolac trometh. 30mg/ml inj. IV ONE (11:20)
[2021-02-08] MEDS ORDERED: sevoflurane 250ml liquid IH ONE (12:00)
[2021-02-08] MEDS ORDERED: fentaNYL/PF 50MCG/1 ML 2ML syringe ONE (12:07)
[2021-02-08] MEDS ORDERED: LIDOcaine 2% (20mg/ml) 5ml vial ONE (12:28)
[2021-02-08] MEDS ORDERED: dexamethasone sod phosphate 4mg/ml inj. ONE (12:28)
[2021-02-08] MEDS ORDERED: ondansetron/PF 4mg/2ml inj ONE (12:28)
[2021-02-08] MEDS ORDERED: midazolam 1 mg/ML 2ml injection ONE (12:28)
[2021-02-08] MEDS ORDERED: propofol inj 20 ML IV ONE (12:28)
--- NOTE | 2021-02-08 12:52 | NUR ---
Received from OR via , accompanied by Anesthesiologist DR ROMAN and report given by Anesthesiolgist. AWAKENS TO VOICE. VITALS STABLE. DRESSING DI. DNEISE PAIN.
--- NOTE | 2021-02-08 13:52 | NUR ---
AWAKE AND ORIENTED. VITALS STABLE. DRESSING DI. DIANE PAIN. HOME WITH IS AT THIS TIME.
== END 2021-02-08 13:52 | disposition home or self-care (01) ==
LOC: PAS 08:32
PROVIDERS: ATTEND Surgery
DX: R22.31 Localized swelling, mass and lump, right upper limb (principal); D17.21 Benign lipomatous neoplasm of skin and subcutaneous tissue of right arm; G89.29 Other chronic pain; E55.9 Vitamin D deficiency, unspecified; E11.9 Type 2 diabetes mellitus without complications; G47.30 Sleep apnea, unspecified; E03.9 Hypothyroidism, unspecified; M06.9 Rheumatoid arthritis, unspecified; F32.9 Major depressive disorder, single episode, unspecified; Z87.440 Personal history of urinary (tract) infections; Z86.14 Personal history of Methicillin resistant Staphylococcus aureus infection; Z98.890 Other specified postprocedural states; Z90.49 Acquired absence of other specified parts of digestive tract; Z94.7 Corneal transplant status; Z87.891 Personal history of nicotine dependence; Z79.899 Other long term (current) drug therapy; Z20.822 Contact with and (suspected) exposure to COVID-19
CPT/HCPCS: 23071; 36415; 80053; 81003; 82948; 85025; 87635; 93005; C9803; J0690; J1100; J2250; J2405; J2704; J3010; J3490; J7030; J7120; Z7506; Z7512; 88304; A4618; A7000